=== PATIENT | female | born 1960 | race Caucasian/White ===

== ENCOUNTER 2017-01-01 22:04 | Inpatient (IN) | payer MEDICARE, OTHER ==
[~2017-01-01] VITALS: Ht 157.5 cm; Wt 81.9 kg
[~2017-01-01 22:04] MED LIST: DOESN'T KNOW MEDS
[2017-01-01] MEDS ORDERED: SOD CHLORIDE 0.9% 500 ML IV STA (22:14)
[2017-01-01] MEDS ORDERED: ONDANSETRON 4 MG INJ IV STA (22:14)
[2017-01-01] MEDS ORDERED: morphine 4 MG/ML VIAL IV STA (22:14)
[2017-01-02] MEDS ORDERED: HYDROmorphONE 1 MG/ML SYG IV STA ×3 (01:30→19:58)
[2017-01-02 01:31] LABS: BASOPHILS % 0.1 % (0.0-2.0); EOSINOPHILS # 0.1 10^3/ul (0.0-0.5); EOSINOPHILS % 0.5 % (0.0-7.0); HEMATOCRIT 42.9 % (37.0-47.0); HEMOGLOBIN 14.8 g/dl (12.0-16.0); LYMPHOCYTES # 1.3 10^3/ul (0.8-2.9); LYMPHOCYTES % 8.2 % (15.0-51.0); MEAN CORPUSCULAR HEMOGLOBIN 31.8 pg (29.0-33.0); MEAN CORPUSCULAR HGB CONC 34.4 g/dl (32.0-37.0); MEAN CORPUSCULAR VOLUME 92.7 fl (82.0-101.0); MEAN PLATELET VOLUME 10.9 fl (7.4-10.4); MONOCYTE # 0.9 10^3/ul (0.3-0.9); NEUTROPHIL # 13.2 10^3/ul (1.6-7.5); NEUTROPHILS % 85.2 % (39.0-77.0); PLATELET COUNT 245 10^3/UL (140-440); RED BLOOD COUNT 4.63 10^6/ul (4.20-5.40); RED CELL DISTRIBUTION WIDTH 15.4 % (11.5-14.5); WHITE BLOOD COUNT 15.5 10^3/ul (4.8-10.8)
[2017-01-02 01:32] LABS: ALBUMIN 3.7 g/dl (3.3-4.9)
[2017-01-02 01:33] LABS: POTASSIUM 4.3 mmol/L (3.5-5.1)
[2017-01-02 01:35] LABS: BILIRUBIN,INDIRECT 0.3 mg/dl (0-1.1); BILIRUBIN,TOTAL 0.3 mg/dl (0.2-1.3); CREATININE 0.62 mg/dl (0.44-1.00)
[2017-01-02 01:36] LABS: ALBUMIN/GLOBULIN RATIO 1.12; CALCIUM 9.5 mg/dl (8.4-10.2); CONDITION 1; LH ANALYZER COMMENTS 1; SUSPECT 1; UNCORRECTED WBC 17.3 10^3/ul (4.8-10.8)
[2017-01-02 02:00] VITALS: TEMP 98.7
--- NOTE | 2017-01-02 02:19 | RADRPT ---
PROCEDURE: CT Abdomen and Pelvis without contrast. CLINICAL INDICATION: Epigastric pain. TECHNIQUE: CT scan of the abdomen and pelvis was performed on a multidetector slice CT scanner. N o intravenous contrast material was utilized. Sagittal and coronal reformatted images were obtained from the axial source images. Images were reviewed on a high-resolution PACS workstation. Exam CTDl vol = 21 mGy and DLP = 1310 Gy-cm. One of the following 3 dose reduction techniques were used: Auto mated exposure control; adjustment of the mA and/or kV according to patient size; or use of iterativ e reconstruction technique. COMPARISON: None. FINDINGS: There is no obstruction or ileus. The appendix is visualized and is normal in size. There is no ev idence for acute appendicitis. There is a few scattered colonic diverticuli without evidence for di verticulitis. There is no free fluid. The liver is overall normal in size. No intrahepatic lesions are identified. The gallbladder is di stended with mild wall thickening. There is mild infiltration H surrounding the gallbladder. There are small noncalcified gallstones versus sludge balls.... There is no definite biliary ductal dilat ion. Pancreas is partially fatty replaced and otherwise normal in appearance. Spleen is unremarkab le.. There are no adrenal masses. The aorta is normal caliber. There are atherosclerotic vascular c alcifications. Kidneys are normal in appearance without hydronephrosis, mass or calculus. Ureters are of normal ca liber. Urinary bladder is unremarkable. Is unremarkable. Ovaries are not well visualized. There is metal artifact from a left hip bipolar arthroplasty. Limited evaluation lung bases is unremarkable. IMPRESSION: 1. Distended gallbladder wall thickening pericholecystic infiltration. Probable noncalcified galls tones versus sludge balls. Appearance is consistent with obstruction of the cystic duct with cholecy stitis.. 2. No evidence for biliary ductal dilatation. 3. Is scattered colonic diverticuli without evidence for diverticulitis. 4. Status post left hip bipolar arthroplasty. 5. Atherosclerotic vascular calcifications. RPTAT: [facility] .Ambrose Willingham MD, MD Date Time Electronically viewed and signed by .Ambrose Willingham MD, on 01/02/2017 02:19 .K/
[2017-01-02] MEDS ORDERED: LORAZEPAM 2 MG INJ IV ONE (03:30)
--- NOTE | 2017-01-02 03:39 | ERA ---
ER Documentation Chief Complaint Date/Time DATE: 01/02/17 TIME: 03:38 Chief Complaint AP SINCE THIS AM +N/V HPI This is a 56-year-old female with abdominal pain this morning. She has nausea and vomiting. The vomiting is nonbilious and nonbloody. No fevers no chills. No other current complaints. ROS All systems reviewed and are negative except as per history of present illness. Allergies Allergies: Coded Allergies: acetaminophen (Unverified Allergy, Unknown, 01/01/17) fentanyl (Unverified Allergy, Unknown, 01/01/17) PMhx/Soc Anesthesia Reaction: No Hx Neurological Disorder: No Hx Respiratory Disorders: No Hx Cardiac Disorders: No Hx Psychiatric Problems: No Hx Miscellaneous Medical Probl: Yes (PANIC ATTACKS, HX OF STROKE) Hx Alcohol Use: No Hx Substance Use: No Hx Tobacco Use: Yes (DAILY) Smoking Status: Former smoker Physical Exam Vitals Vital Signs Date Time Temp Pulse Resp B/P Pulse Ox O2 Delivery O2 Flow Rate FiO2 01/02/17 02:00 98.7 78 19 107/85 100 Room Air 01/01/17 22:14 74 19 151/75 97 Physical Exam Const: [] Head: Atraumatic Eyes: Normal Conjunctiva ENT: Normal External Ears, Nose and Mouth. Neck: Full range of motion..~ No meningismus. Resp: Clear to auscultation bilaterally Cardio: Regular rate and rhythm, no murmurs Abd: Soft, non tender, non distended. Normal bowel sounds Skin: No petechiae or rashes Back: No midline or flank tenderness Ext: No cyanosis, or edema Neur: Awake and alert Psych: Normal Mood and Affect Result Diagram: 01/02/17 0035 01/02/17 0035 Results 24 hrs Laboratory Tests Test 01/02/17 00:35 Alanine Aminotransferase (ALT/SGPT) 13IU/L Albumin 3.7g/dl Albumin/Globulin Ratio 1.12 Alkaline Phosphatase 85IU/L Anion Gap 18 Aspartate Amino Transf (AST/SGOT) 14IU/L Basophils # 0.010^3/ul Basophils % 0.1% Blood Morphology Comment Blood Urea Nitrogen 9mg/dl Calcium Level 9.5mg/dl Carbon Dioxide Level 22mmol/L Chloride Level 104mmol/L Creatinine 0.62mg/dl Direct Bilirubin 0.00mg/dl Eosinophils # 0.110^3/ul Eosinophils % 0.5% Globulin 3.30g/dl Glucose Level 121mg/dl Hematocrit 42.9% Hemoglobin 14.8g/dl Indirect Bilirubin 0.3mg/dl Lipase 41U/L Lymphocytes # 1.310^3/ul Lymphocytes % 8.2% Mean Corpuscular Hemoglobin 31.8pg Mean Corpuscular Hemoglobin Concent 34.4g/dl Mean Corpuscular Volume 92.7fl Mean Platelet Volume 10.9fl Monocytes # 0.910^3/ul Monocytes % 6.0% Neutrophils # 13.210^3/ul Neutrophils % 85.2% Nucleated Red Blood Cells # 0.010^3/ul Nucleated Red Blood Cells % 0.0/100WBC Platelet Count 46825^3/UL Potassium Level 4.3mmol/L Red Blood Count 4.6310^6/ul Red Cell Distribution Width 15.4% Sodium Level 140mmol/L Total Bilirubin 0.3mg/dl Total Protein 7.0g/dl White Blood Count 15.510^3/ul Current Medications Medications (Trade) Dose Ordered Sig/Yanick Route PRN Reason Start Time Stop Time Status Last Admin Dose Admin Sodium Chloride (NS) 500 ml @ 500 mls/hr Q1H STAT IV 01/01/17 22:14 01/01/17 23:13 DC 01/01/17 22:24 Morphine Sulfate (morphine) 4 mg ONCE STAT IV 01/01/17 22:14 01/01/17 22:16 DC 01/01/17 22:23 Ondansetron HCl (Zofran Inj) 4 mg ONCE STAT IV 01/01/17 22:14 01/01/17 22:16 DC 01/01/17 22:23 Hydromorphone HCl (Dilaudid) 1 mg ONCE STAT IV 01/02/17 01:30 01/02/17 01:31 DC 01/02/17 01:40 Lorazepam (Ativan) 1 mg ONCE ONCE IV 01/02/17 03:30 01/02/17 03:31 DC 01/02/17 03:30 Hydromorphone HCl (Dilaudid) 1 mg ONCE STAT IV 01/02/17 03:28 01/02/17 03:29 DC Procedures/MDM Medical decision-makin-year-old female with evidence of cholecystitis. At this point patient will be admitted to hospitalist. Dr. Brennan has been consulted for surgery. Departure Diagnosis: Primary Impression: Cholecystitis Condition: Serious ALEX RODGERS RadhaMaribell Jan 02, 2017 03:39
[2017-01-02] MEDS: DEXTROSE 5%-0.45% NACL 1,000 ML IV SCH ×3 (05:00→21:00)
[2017-01-02] MEDS ORDERED: KETOROLAC 30 MG INJ IV PRN (05:00)
[2017-01-02] MEDS: PIPER-TAZO 3.375 GM IV (PMX) 100 ML IVPB SCH ×4 (05:10→23:12)
[2017-01-02 05:19] VITALS: BP 160/73; PULSE 80; RESP 19
[2017-01-02 05:31] VITALS: Ht 157.5 cm; Wt 81.9 kg
[2017-01-02 08:00] VITALS: BP 145/70; RESP 20
--- NOTE | 2017-01-02 08:22 | HP ---
DATE OF ADMISSION: 01/02/2017 TIME SEEN: 5 a.m. CHIEF COMPLAINT: Abdominal pain. HISTORY OF PRESENT ILLNESS: The patient is a 56-year-old female with a history of CVA, panic attack , and left hip replacement who presents to the emergency department with abdominal pain. The patien leopoldo is currently not providing any history to me, and she also has been screaming and swearing at the nurses, saying that everybody is an idiot. The patient has been asking for Dilaudid that she receiv ed in the ER, but currently she is on morphine and Toradol. According to the ER physician, her abdo stacy pain has been going on for 1 day. Her laboratory values show a WBC of 15.5. Otherwise, CBC a nd CMP are within acceptable range. Her liver enzymes and lipase are within normal limits. CT abdo men and pelvis without contrast shows a distended gallbladder wall thickening with pericholecystic i nfiltration. Probable noncalcified gallstones versus sludge. Appearance is consistent with obstruc tion of the cystic duct with cholecystitis. No evidence of bleeding ductal dilatation. Scattered c olonic diverticula without evidence of diverticulitis was also noted. Again, I am not able to gathe r any information at this time. REVIEW OF SYSTEMS: Unable to fully assess. PAST MEDICAL HISTORY: As per HPI. PAST SURGICAL HISTORY: Unknown. SOCIAL HISTORY: Unknown. ALLERGIES: 1. ACETAMINOPHEN. 2. FENTANYL. HOME MEDICATIONS: None listed. PHYSICAL EXAMINATION: VITAL SIGNS: Blood pressure 136/77, heart rate 88, respiratory rate 17, temperature 98.7, oxygen sa turation 99% on 2 L. GENERAL: The patient is currently agitated, at times she is screaming. I am not able to do physical at this time. LABORATORY: Pertinent positives as mentioned in the HPI. IMAGING: CT abdomen and pelvis with results as mentioned in the HPI. IMPRESSION: 1. Acute cholecystitis. 2. Abdominal pain, secondary to above. 3. Leukocytosis, secondary to #1 . 4. History of cerebrovascular accident. 5. History of panic attacks. PLAN: Keep n.p.o. with IV fluids. We will provide pain medication and antiemetics as needed. Curr ently, she is awaiting surgical evaluation. Will consider ordering a HIDA scan, but will leave that decision to the surgeon. Further workup and management per clinical course. Dictated By: ALEX RUIZ/GRIFFIN Conf#: [id number] DID#: [id number]
[2017-01-02] MEDS: FAMOTIDINE 20 MG INJ IV SCH ×2 (09:37→20:53)
--- NOTE | 2017-01-02 12:45 | RADRPT ---
PROCEDURE: HIDA scan CLINICAL INDICATION: 56 -year-old patient with abdominal pain. TECHNIQUE: Following the intravenous injection of into mCi of Tc-99m mebrofenin, multiple images o f the abdomen were obtained up to 60 minutes post injection. COMPARISON: No prior studies. FINDINGS: The liver is promptly visualized, demonstrates homogeneous distribution of radionuclide. There is visualization of the common bile duct and gastrointestinal activity within normal time. The gallbladder is not visualized up to 60 minutes post injection. IMPRESSION: 1. Nonvisualization of the gallbladder up to 60 minutes post injection. 2. No evidence of common bile duct obstruction. Delayed images to follow. A call report was made to Dr. Brennan at 12: 43 p.m. on January 02, 2017. RPTAT: HH .Carine Houston MD, Date Time Electronically viewed and signed by .Craine Houston MD, on 01/02/2017 12:45 .L/
--- NOTE | 2017-01-02 14:34 | CONS ---
DATE OF ADMISSION: 01/02/2017 DATE OF CONSULTATION: 01/02/2017 HISTORY OF PRESENT ILLNESS: Ms. Bello is a 56-year-old female who was admitted to the ER last nigh t with clinical and radiological signs and symptoms of cholecystitis. I went to evaluate the patien t this morning, but she refused to let me in the room and refused surgery. I am now contacting the social workers as well as field nurse case manager. I cannot assess whether she does have cholecystitis based o n my exam as she refuses to let me examine her. However, she does have a positive HIDA and a white count of 15. Therefore, at this point, I had her initially on the schedule for surgery today, but t his is going to have to be postponed due to more evaluation of her mental status. I am unable to obtain past medical history or past surgical history, medications, or allergies, but from the chart she has: PAST MEDICAL HISTORY: CVA, panic attacks. PAST SURGICAL HISTORY: Left hip replacement. ALLERGIES: 1. ACETAMINOPHEN. 2. FENTANYL. HOME MEDICATIONS: None listed. PHYSICAL EXAMINATION: VITAL SIGNS: She is afebrile. Vital signs stable. I am unable to examine her chest, lungs, or abdomen. LABORATORIES: Reveal a white count of 15, hematocrit of 43, and platelets of 245. Sodium 140, pota ssium 4.3, chloride 104, CO2 22, BUN and creatinine 9 and 0.6, glucose 121. A CT of the abdomen and pelvis showed a distended gallbladder with wall thickening, probable gallstones or sludge. This was consistent with obstruction of the cystic duct with cholecystitis. A HIDA scan was ordered which did show nonvisualization of the gallbladder up to 60 minutes, the patient refused to have de layed images. ASSESSMENT AND PLAN: Ms. Bello is a 56-year-old female with likely cholecystitis. I am unable to examine the patient to definitively prove this diagnosis. 1. She will likely need a laparoscopic cholecystectomy, but may respond to medical management. 2. She is refusing surgery at this point and wishes to be transferred to [facility]. We will need to get psychiatry/psychology involved to determine her mental capacity. If she does not impro ve on antibiotics and worsens, it is going to be difficult to, I think, get her into the operating r oom, even if she is declared mentally incompetent. Dictated By: PRAVEEN BLAKE/GRIFFIN Conf#: [id number] DID#: [id number]
[2017-01-02] MEDS ORDERED: ZOLPIDEM 5 MG TAB PO PRN (20:00)
[2017-01-02] MEDS: LORAZEPAM 2 MG INJ IV PRN (20:47)
--- NOTE | 2017-01-02 20:58 | CONS ---
DATE OF ADMISSION: 01/02/2017 DATE OF CONSULTATION: 01/02/2017 SURGICAL SECOND OPINION REASON FOR CONSULTATION: Acute cholecystitis. REQUESTING PHYSICIAN: Dr. Zepeda HISTORY OF PRESENT ILLNESS: The patient is a 56-year-old female with a history of CVA, panic attack, and left hip replacement who was admitted with abdominal pain. Apparently, the pain has been going on for 1 day. On arrival to the emergency room, she was found to have a white blood cell count of 15.5. A CT scan showed gallbladder wall thickening with inflammatory changes concerning for acute cholecystitis. The patient was initially admitted and surgical consultation was called with the primary surgeon on the case. However, he was unable to obtain an adequate history and physical exam given the patient's agitation and failure to cooperate. He did, however, order a HIDA scan, which showed nonvisualization of the gallbladder after 60 minutes. His recommendations were for laparoscopic cholecystectomy with the alternative of medical management if the patient refuses. Patient has requested a second opinion. Upon my arrival to the patient's room, as soon as I entered, she yelled for me to get out and go away. I was not able to obtain much of an appropriate to history from the patient, as she kept rambling that she wanted her Dilaudid. She refused to also allow me to perform a physical exam on her. Apparently, the patient also refused a tele psych examination. She has been refusing IV antibiotics and IV fluids as well. PAST MEDICAL HISTORY: As mentioned in the HPI. PAST SURGICAL HISTORY: As mentioned in HPI. MEDICATIONS: Please refer to medication reconciliation. ALLERGIES: ACETAMINOPHEN AND FENTANYL. REVIEW OF SYSTEMS: Unable to obtain, as the patient does not cooperate and keeps yelling for me to get out. PHYSICAL EXAMINATION: VITAL SIGNS: Temperature is 98.6, pulse is 87, respirations 20, blood pressure 145/70, O2 sats 96% on room air. GENERAL APPEARANCE: She is an obese female who is agitated, yelling, and uncooperative. The patient did not permit me to perform a physical exam; therefore, I was unable to examine her abdomen to assess for tenderness. LABORATORY WORK: White blood cell count 15.5, hemoglobin 14.8, platelet count is 245. Sodium 140, potassium 4.3, chloride 104, bicarbonate 22, BUN 9, creatinine 0.62, glucose 121. Albumin 3.7, total bilirubin 0.3, alkaline phosphatase 85, AST 14, ALT 13. IMAGING STUDIES: CT scan of the abdomen and pelvis shows a distended gallbladder with wall thickening and pericholecystic infiltration. There are probable noncalcified gallstones versus sludge balls. There are scattered colonic diverticula without evidence for diverticulitis. Status post left hip arthroplasty and atherosclerotic vascular calcifications. HIDA scan shows nonvisualization of the gallbladder up to 60 minutes post-injection. No evidence of common bile duct obstruction. RECOMMENDATIONS: This is a 56-year-old female with findings concerning for acute cholecystitis based on abdominal CT scan and HIDA scan. The patient is agitated, belligerent, uncooperative, and verbally abusive to both myself, the primary care team, and the staff. The patient's nurse was in the room with me to witness all of this. I tried to explain to her that I believe the patient has acute cholecystitis and would benefit from surgical intervention. She asked me how I would know that and told me that surgery is too drastic and that she does not want it. I do agree with the primary surgeon' s assessment and plan, recommending cholecystectomy. However, if the patient continues to refuse, the other alternative would be to treat medically with bowel rest, pain control, and IV antibiotics. The patient, however, is also refusing IV antibiotics. I attempted to discuss the risks of refusing all these treatments, however, she refused to hear it. I have discussed the case with the nurse who was in the room with me as well as with primary care team and the primary surgeon on the case. I agree with their assessment and plans thus far and will leave further decision making and management to them. Dictated By: AGBE BRUNSON/GRIFFIN Conf#: [id number] DID#: [id number] CC: ALEX CHANEY MD; CÉSAR ZEPEDA;*EndCC* MTDJordan
[2017-01-02 21:00] VITALS: BP 157/79; PULSE 99; RESP 18
[2017-01-02] MEDS: NYSTATIN 30 GM POWDER BTL TOP SCH (23:00)
--- NOTE | 2017-01-03 00:17 | PN ---
DATE: 01/02/2017 ADDENDUM: TO MY CONSULTATION NOTE OF TODAY. Patient is obviously refusing surgery. We attempted to obtain a tele psych clearance and obtain her competency but the patient refused. The patient wished to have a second surgical opinion and jyoti joyce with that second surgical opinion. At this point, it was very difficult to manage thi s patient. She potentially could manage this medically without surgery, but she is refusing IV anti biotics. I think it is very important to establish her incompetency as she is incompetent then we c an treat her medically or surgically against her wishes. I am not sure if there is a medical ethics committee at this hospital, but if there is then the case should be presented. I also feel that we should withdraw her pain medication as this is only enabling the patient's situation. By removing her pain medication the patient may realize that she needs surgery for her cholecystitis. Further r ecommendations to follow. Dictated By: PRAVEEN BLAKE/GRIFFIN Conf#: [id number] DID#: [id number]
[2017-01-03] MEDS: DEXTROSE 5%-0.45% NACL 1,000 ML IV SCH ×3 (00:21→21:00)
[2017-01-03] MEDS: morphine 4 MG/ML VIAL IV PRN ×3 (00:54→10:25)
[2017-01-03] MEDS: LORAZEPAM 2 MG INJ IV PRN ×4 (00:54→14:25)
[2017-01-03] MEDS ORDERED: morphine 2 MG INJ IV ONE (01:00)
[2017-01-03] MEDS: HYDROmorphONE 1 MG/ML SYG IV PRN ×4 (02:41→16:05)
[2017-01-03] MEDS: NYSTATIN 30 GM POWDER BTL TOP SCH ×3 (03:29→20:32)
[2017-01-03] MEDS: PIPER-TAZO 3.375 GM IV (PMX) 100 ML IVPB SCH ×4 (05:01→23:20)
[2017-01-03 05:51] LABS: BASOPHILS % 0.5 % (0.0-2.0); EOSINOPHILS # 0.1 10^3/ul (0.0-0.5); EOSINOPHILS % 1.7 % (0.0-7.0); HEMATOCRIT 35.7 % (37.0-47.0); HEMOGLOBIN 12.3 g/dl (12.0-16.0); LYMPHOCYTES # 1.1 10^3/ul (0.8-2.9); MEAN CORPUSCULAR HEMOGLOBIN 32.1 pg (29.0-33.0); MEAN CORPUSCULAR HGB CONC 34.5 g/dl (32.0-37.0); MEAN PLATELET VOLUME 11.1 fl (7.4-10.4); MONOCYTE # 0.6 10^3/ul (0.3-0.9); MONOCYTES % 7.2 % (0.0-11.0); NEUTROPHILS % 78.6 % (39.0-77.0); PLATELET COUNT 215 10^3/UL (140-440); RED BLOOD COUNT 3.84 10^6/ul (4.20-5.40); RED CELL DISTRIBUTION WIDTH 14.9 % (11.5-14.5); UNCORRECTED WBC 8.9 10^3/ul (4.8-10.8); WHITE BLOOD COUNT 8.9 10^3/ul (4.8-10.8)
[2017-01-03 06:12] LABS: CONDITION 1; LH ANALYZER COMMENTS 1
[2017-01-03 06:13] LABS: CREATININE 0.72 mg/dl (0.44-1.00)
[2017-01-03 06:14] LABS: CALCIUM 9.2 mg/dl (8.4-10.2)
[2017-01-03] MEDS: FAMOTIDINE 20 MG INJ IV SCH ×2 (09:06→21:00)
--- NOTE | 2017-01-03 11:28 | PN ---
DATE: 01/03/2017 SUBJECTIVE: The patient still with abdominal pain, requested a second opinion from different surger y team yesterday, still requesting pain medication. OBJECTIVE VITAL SIGNS: Stable, except blood pressure 157/79. GENERAL: The patient lying in bed, still somewhat difficult to speak to, but alert. Cranky. HEENT: Pupils equal, round, react to light. Extraocular muscles intact. NECK: Supple, no thyromegaly. LUNGS: Clear to auscultation bilaterally. CARDIOVASCULAR: S1, S2 heard. No rubs or gallops. ABDOMEN: Tenderness to palpation in the right upper quadrant area with some guarding. Slightly dec reased bowel sounds. MUSCULOSKELETAL: No lower extremity edema bilaterally. NEUROLOGIC: No focal deficits. LABORATORY DATA: CBC is completely normal. BMP is normal. ASSESSMENT AND PLAN: This is a difficult 56-year-old female with history of CVA, panic attack, left hip replacement, who comes in with abdominal pain and signs of acute cholecystitis. 1. Abdominal pain secondary to acute cholecystitis. Again, the patient has been refusing to partic ipate with telepsychiatry and wants second opinion from second surgeon. She is now willing today to speak again to the second surgeon to consider possible surgical intervention. She was explained in details the risks of treating only with antibiotics versus surgical intervention which is the prefe rred option based on her exam and her laboratory results. The patient is still asking for frequent pain medications. Again, she is agreeing to reconsider the surgical option, but wants to speak to t he second surgeon again, so we are going to recontact him to see if they can talk to her. In the az antime, continue pain control medications and antibiotics and n.p.o. status for now. Monitor vital signs very carefully. We are also going to get palliative care team involved. We need to determine if the patient in fact can make her own decisions given her volatile affect and the fact that she i s changing her mind very frequently, but again we explained the importance in detail about the risks of not proceeding with surgery at this point including spread of infection, sepsis, and even . 2. continue to monitor for now, no present issues. 3. History of prior left hip replacement. Again, PT consult. No present issues regarding that. 4. Leukocytosis, improved, secondary to #1. Continue to monitor for now. 5. History of panic attacks. There is Ativan written for p.r.n. 6. Gastrointestinal prophylaxis, H2 bill. 7. Deep venous thrombosis prophylaxis, sequential compression devices. Dictated By: CÉSAR CHRISTENSEN Conf#: [id number] DID#: [id number]
--- NOTE | 2017-01-03 13:31 | PN ---
Date/Time of Note Date/Time of Note DATE: 01/03/17 TIME: 13:28 Assessment/Plan Lines/Catheters IV Catheter Type (from [facility]): Peripheral IV Sanchez in Place (from [facility]): No Assessment/Plan Assessment/Plan 56-year-old female with clinical signs and symptoms of acute cholecystitis * Confirmed via CT scan and HIDA scan * Leukocytosis improved * Patient now allowing IV antibiotics. Continue * Patient seems to be more agreeable to surgical intervention at this time. * We'll try and obtain medical clearance for possible surgery if patient definitively agrees. Subjective 24 Hr Interval Summary Was asked to see patient again as she wanted to talk to me about surgery. Patient is more calm and cooperative today. Still complains of right upper quadrant abdominal pain. Afebrile. Exam/Review of Systems Vital Signs Vitals Vital Signs Date Time Temp Pulse Resp B/P Pulse Ox O2 Delivery O2 Flow Rate FiO2 01/03/17 08:00 Nasal Cannula 2.0 01/02/17 21:00 98.4 99 18 157/79 97 Intake and Output 01/02/17 01/02/17 01/03/17 15:00 23:00 07:00 Intake Total 900 ml 350 ml Output Total 550 ml Balance 900 ml -200 ml Exam Free Text/Dictation GENERAL: Awake, alert, oriented 3. No acute distress. SKIN: No jaundice. ABDOMEN: Soft, obese, right upper quadrant tenderness to palpation. Results Result Diagram: 01/03/17 0425 01/03/17 0425 GABE MONTANO MD Jan 03, 2017 13:31
[2017-01-03] MEDS ORDERED: HALOPERIDOL 5 MG INJ IM PRN (14:30)
[2017-01-03] MEDS: morphine 2 MG INJ IV PRN (17:04)
[2017-01-04] MEDS: PIPER-TAZO 3.375 GM IV (PMX) 100 ML IVPB SCH ×3 (05:25→18:00)
[2017-01-04] MEDS: HYDROmorphONE 1 MG/ML SYG IV PRN ×2 (07:31→11:00)
[2017-01-04] MEDS: DEXTROSE 5%-0.45% NACL 1,000 ML IV SCH ×2 (07:31→17:00)
[2017-01-04] MEDS: LORAZEPAM 2 MG INJ IV PRN ×2 (07:46→11:48)
[2017-01-04] MEDS: FAMOTIDINE 20 MG INJ IV SCH ×2 (09:00→21:00)
[2017-01-04] MEDS: NYSTATIN 30 GM POWDER BTL TOP SCH ×2 (09:00→21:00)
--- NOTE | 2017-01-04 09:24 | PN ---
Date/Time of Note Date/Time of Note DATE: 01/04/17 TIME: 09:19 Assessment/Plan Lines/Catheters IV Catheter Type (from [facility]): Peripheral IV Sanchez in Place (from [facility]): No Assessment/Plan Assessment/Plan 56-year-old female with clinical signs and symptoms of acute cholecystitis * Confirmed via CT scan and HIDA scan * Leukocytosis improved * Patient now allowing IV antibiotics. Continue * Patient seems to be more agreeable to surgical intervention, however remains emotionally labile when advised to allow necessary pre-operative workup and clearance. * Continue medical management. Await clearance if she allows. Subjective 24 Hr Interval Summary Continues to complain of pain. Continues to refuse blood draws, EKG, and vitals. Afebrile on last measurement. Exam/Review of Systems Vital Signs Vitals Vital Signs Date Time Temp Pulse Resp B/P Pulse Ox O2 Delivery O2 Flow Rate FiO2 01/03/17 08:00 Nasal Cannula 2.0 01/02/17 21:00 98.4 99 18 157/79 97 Intake and Output 01/03/17 01/03/17 01/04/17 15:00 23:00 07:00 Intake Total 250 ml 1000 ml Balance 250 ml 1000 ml Exam Free Text/Dictation GENERAL: Awake, alert, oriented 3. No acute distress. SKIN: No jaundice. ABDOMEN: Soft, obese, right upper quadrant tenderness to palpation. Results Result Diagram: 01/03/17 0425 01/03/17 0425 GABE MONTANO MD Jan 04, 2017 09:24
--- NOTE | 2017-01-04 11:33 | PN ---
Date/Time of Note Date/Time of Note DATE: 01/04/17 TIME: 11:28 Assessment/Plan VTE Prophylaxis VTE Prophylaxis Intervention: SCD's Lines/Catheters IV Catheter Type (from [facility]): Peripheral IV Urinary Cath still in place: No Assessment/Plan Chief Complaint/Hosp Course ASSESSMENT AND PLAN: Difficult 56-year-old female with history of CVA, panic attack, left hip replacement, who comes in with abdominal pain and signs of acute cholecystitis. 1. Abdominal pain secondary to acute cholecystitis - on IV abx, still refusing surgery. Also refusing to participate with telepsychiatry. She was explained in details the risks of treating only with antibiotics versus surgical intervention which is the preferred option based on her exam and her laboratory results. The patient is still asking for frequent pain medications. We have explained the importance in detail about the risks of not proceeding with surgery at this point including spread of infection, sepsis, and even . She briefly reconsidered the surgical option yesterday, but again changed her mind yesterday. - for now, continue pain control medications and antibiotics and n.p.o. status for now. - Monitor vital signs very carefully. - f/u palliative care team rec's - per discussion with them pt may have component of schizophrenia - may benefit from antipsychotics. We also need to determine if the patient in fact can make her own decisions given her volatile affect and the fact that she is changing her mind very frequently. 2. Hx of prior CVA - continue to monitor for now, no present issues. 3. History of prior left hip replacement. Again, f/u PT consult. No present issues. 4. Leukocytosis, improved, secondary to #1. Continue to monitor for now. 5. History of panic attacks. There is Ativan written for p.r.n. Haldol prn IM. 6. Gastrointestinal prophylaxis, H2 bill. 7. Deep venous thrombosis prophylaxis, sequential compression devices. Problems: Subjective 24 Hr Interval Summary Free Text/Dictation Pt still refusing surgery. Exam/Review of Systems Vital Signs Vitals Vital Signs Date Time Temp Pulse Resp B/P Pulse Ox O2 Delivery O2 Flow Rate FiO2 01/03/17 08:00 Nasal Cannula 2.0 01/02/17 21:00 98.4 99 18 157/79 97 Intake and Output 01/03/17 01/03/17 01/04/17 15:00 23:00 07:00 Intake Total 250 ml 1000 ml Balance 250 ml 1000 ml Exam GENERAL: The patient lying in bed, more alert. Less cranky. HEENT: Pupils equal, round, react to light. Extraocular muscles intact. NECK: Supple, no thyromegaly. LUNGS: Clear to auscultation bilaterally. CARDIOVASCULAR: S1, S2 heard. No rubs or gallops. ABDOMEN: Tenderness to palpation in the right upper quadrant area with some guarding. Slightly decreased bowel sounds. MUSCULOSKELETAL: No lower extremity edema bilaterally. NEUROLOGIC: No focal deficits. Results Result Diagram: 01/03/175 01/03/175 Medications Medications Current Medications Dextrose/Sodium Chloride (D5-1/2ns) 1,000 ml @ 100 mls/hr Q10H IV Last administered on 01/04/17 07:31; Admin Dose 100 MLS/HR; Start 01/02/17 at 05:00 Ketorolac Tromethamine 30 mg 30 mg Q6H PRN IV PAIN; Start 01/02/17 at 05:00; Stop 01/05/17 at 04:59 Piperacillin Sod/ Tazobactam Sod (Zosyn 3.375gm/ 100 ml (Pmx)) 100 ml @ 200 mls /hr Q6 IVPB Last administered on 01/04/17 05:25; Admin Dose 200 MLS/HR; Start 01/02/17 at 06:00 Ondansetron HCl (Zofran Inj) 4 mg Q6H PRN IV NAUSEA AND/OR VOMITING; Start at 05:00 Famotidine (Pepcid Iv) 20 mg BID IV Last administered on 01/03/17 09:06; Admin Dose 20 MG; Start 01/02/17 at 09:00 Lorazepam (Ativan) 1 mg Q4H PRN IV ANXIETY Last administered on 01/04/17 07:46 ; Admin Dose 1 MG; Start 01/02/17 at 20:00 Nystatin (Nystatin Powder) 1 applic BID TOP Last administered on 01/03/17 08: 20; Admin Dose 1 APPLIC; Start 01/02/17 at 23:00 Morphine Sulfate (morphine) 1 mg Q4H PRN IV PAIN LEVEL 4-7 Last administered on 01/03/17 17:04; Admin Dose 1 MG; Start 01/03/17 at 13:00 Haloperidol (Haldol) 1 mg Q4H PRN IM AGITATION/ANXIETY; Start 01/03/17 at 14:30 Hydromorphone HCl (Dilaudid) 0.25 mg Q6H PRN IV PAIN; Start 01/04/17 at 16:30 CÉSAR ZEPEDA Jan 04, 2017 11:33
[2017-01-04] MEDS: morphine 2 MG INJ IV PRN (12:07)
--- NOTE | 2017-01-04 13:12 | CONS ---
DATE OF ADMISSION: 01/02/2017 DATE OF CONSULTATION: 01/04/2017 TYPE OF CONSULTATION: Pain management REFERRING PHYSICIAN: Brian Love MD HISTORY OF PRESENT ILLNESS: By history, this is a 56-year-old female with past medical history of C VA, presents with abdominal pain. Recently seen at [facility] was sent home at that time , with just given IV opioids at that time. However, her pain persisted. She presented to the emerg ency room at [facility] with increasing abdominal discomfort, increasing 1 day royce or to presentation. CT scan done in the emergency room showed a distended gallbladder, thickening w ith pericholecystic infiltration by radiologist, consistent with obstruction of the cystic duct with cholecystitis. The patient continues to complain of abdominal discomfort which is continuous in a generalized abdomen without radiation. There is no history of substance abuse in the past. She duglas cribes the pain as 10/10 and without radiation. She does have nausea but without vomiting associate d with this. MEDICATIONS: Please refer to reconciliation sheet. ALLERGIES: 1. FENTANYL PATCH. 2. ACETAMINOPHEN. 3. KETOROLAC. MAJOR MEDICAL PROBLEMS IN THE PAST: History of left hip fracture approximately over 1 year ago. Hi story of depression on SSRIs at this time. SOCIAL HISTORY: Noncontributory. FAMILY HISTORY: Noncontributory. REVIEW OF SYSTEMS: As per history of present illness, 12-point review of systems otherwise unremark able. PHYSICAL EXAMINATION: GENERAL: Shows a somewhat uncomfortable-appearing female. VITAL SIGNS: Blood pressure 151/79, pulse 99 and regular, respirations of 18, temperature of 98.4 d egrees, 97% saturation on 3 liters. HEENT: She is normocephalic and atraumatic. Anicteric, acyanotic. CHEST: Shows bilateral clear breath sounds throughout both lung pham. COR: S1, S2, without S3, S4, murmur, gallop, rub. Normal rate, normal rhythm. ABDOMEN: Distended. No gross evidence of rebound or peritoneal signs. LABORATORY TESTS: There are no new laboratory tests today. ASSESSMENT AND PLAN: This is a 56-year-old female with acute cholecystitis who is refusing surgery. I believe the reason for that is she has some underlying psychiatric history, the best I could asc ertain, bipolar as she is currently on SSRI and she has refused Seroquel in the past. She has been taking a combination of Zoloft and morphine, fairly high dose of morphine 90 mg a day, Xanax and an unknown sleeping medication. I believe there is a reasonably good chance that she is withdrawing fr om Zoloft, morphine and Xanax in addition to being somewhat cantankerous also and is probably bipola r from my nonpsychiatric standpoint. I think the best thing to do is to cover her right now for pot ential withdrawal syndrome. I will start her off on a very low of continuous Dilaudid, which I have negotiated with her on only at 1 mg/hour with p.r.n. doses for breakthrough pain. I will start her off on an atypical antipsychotic, Geodon crushed in water 10 mg b.i.d. to start immediately and for potential withdrawal from benzodiazepines, we will start her off on Xanax as a scheduled dose also. Currently, she has agreed to surgery, but I will come back later on this afternoon. Hopefully, ej chester does not refuse medications and refused surgical intervention. Dictated By: ROBERTO ROBERTO MD, LP/GRIFFIN Conf#: [id number] DID#: [id number]
[2017-01-04] MEDS: HYDROmorphONE 0.2 MG/ML PCA IV SCH (15:21)
[2017-01-04] MEDS: LORAZEPAM 2 MG INJ IV SCH ×2 (15:22→18:00)
[2017-01-04] MEDS: ZIPRASIDONE 20 MG CAP PO SCH ×2 (16:07→21:00)
[2017-01-04] MEDS ORDERED: HYDROmorphONE 1 MG/ML SYG IV PRN (16:30)
[2017-01-04] MEDS ORDERED: HYDROmorphONE 2 MG TAB PO PRN (19:30)
[2017-01-04] MEDS: LORAZEPAM 1 MG TAB PO PRN (21:35)
[2017-01-05] MEDS: DEXTROSE 5%-0.45% NACL 1,000 ML IV SCH ×3 (03:00→23:08)
[2017-01-05] MEDS: PIPER-TAZO 3.375 GM IV (PMX) 100 ML IVPB SCH ×5 (05:28→23:32)
[2017-01-05] MEDS: LORAZEPAM 2 MG INJ IV SCH ×5 (05:28→23:32)
[2017-01-05] MEDS: LORAZEPAM 1 MG TAB PO PRN (07:55)
[2017-01-05] MEDS: FAMOTIDINE 20 MG INJ IV SCH ×2 (08:04→20:40)
[2017-01-05] MEDS: ZIPRASIDONE 20 MG CAP PO SCH ×2 (08:04→20:40)
[2017-01-05] MEDS: NYSTATIN 30 GM POWDER BTL TOP SCH ×2 (08:05→21:00)
--- NOTE | 2017-01-05 11:03 | PN ---
Date/Time of Note Date/Time of Note DATE: 01/05/17 TIME: 10:57 Assessment/Plan VTE Prophylaxis VTE Prophylaxis Intervention: SCD's Lines/Catheters IV Catheter Type (from Nrsg): Peripheral IV Urinary Cath still in place: No Assessment/Plan Chief Complaint/Hosp Course ASSESSMENT AND PLAN: Difficult 56-year-old female with history of CVA, panic attack, left hip replacement, who comes in with abdominal pain and signs of acute cholecystitis. 1. Abdominal pain - secondary to acute cholecystitis - on IV abx, still refusing surgery. Also refusing to participate with telepsychiatry. She was explained in details the risks of treating only with antibiotics versus surgical intervention which is the preferred option based on her exam and her laboratory results. The patient is still asking for frequent pain medications. We have explained the importance in detail about the risks of not proceeding with surgery at this point including spread of infection, sepsis, and even . As of now she agrees to the surgical option. Per pain mngt team, pt may be withdrawing from Zoloft, morphine and Xanax (she apparently was taking high doses of these meds as outpt). She may have component of bipolar ds as well. - for now, continue pain control medications, Geodon, and antibiotics and n.p.o. status for now. - Monitor vital signs very carefully. - f/u palliative care team rec's - awaiting EKG and troponin, if neg results then pt would be medically cleared for surgery. 2. Hx of prior CVA - continue to monitor for now, no present issues. 3. History of prior left hip replacement. Again, f/u PT consult. No present issues. 4. Leukocytosis, improved, secondary to #1. Continue to monitor for now. 5. History of panic attacks. There is Ativan written for p.r.n. Haldol prn IM. 6. Gastrointestinal prophylaxis, H2 bill. 7. Deep venous thrombosis prophylaxis, sequential compression devices. Problems: Subjective 24 Hr Interval Summary Free Text/Dictation Pt seen by pain mngt team yesterday, getting PICC now. Only taking PO pain meds presently (refusing all the others, per nursing). Exam/Review of Systems Vital Signs Vitals Vital Signs Date Time Temp Pulse Resp B/P Pulse Ox O2 Delivery O2 Flow Rate FiO2 01/04/17 22:30 Nasal Cannula 2.0 2/14/17 21:00 98.4 99 18 157/79 97 Intake and Output 01/04/17 01/04/17 01/05/17 15:00 23:00 07:00 Intake Total 50 ml Balance 50 ml Exam PE: - unable to perform today b/c pt off floor at procedure Results Result Diagram: 01/03/17 0425 01/03/17 0425 Medications Medications Current Medications Dextrose/Sodium Chloride 1,000 ml @ 100 mls/hr Q10H IV Last administered on 07:31; Admin Dose 100 MLS/HR; Start 01/02/17 at 05:00 Piperacillin Sod/ Tazobactam Sod (Zosyn 3.375gm/ 100 ml (Pmx)) 100 ml @ 200 mls /hr Q6 IVPB Last administered on 01/04/17 11:48; Admin Dose 200 MLS/HR; Start 01/02/17 at 06:00 Ondansetron HCl (Zofran Inj) 4 mg Q6H PRN IV NAUSEA AND/OR VOMITING; Start at 05:00 Famotidine (Pepcid Iv) 20 mg BID IV Last administered on 01/03/17 09:06; Admin Dose 20 MG; Start 01/02/17 at 09:00 Nystatin (Nystatin Powder) 1 applic BID TOP Last administered on 01/03/17 08: 20; Admin Dose 1 APPLIC; Start 01/02/17 at 23:00 Hydromorphone HCl (Dilaudid) 1 mg Q4 PRN IV PAIN; Start 01/04/17 at 13:00 Lorazepam (Ativan) 0.5 mg Q6 IV Last administered on 01/04/17 15:22; Admin Dose 0.5 MG; Start 01/04/17 at 14:00 Ziprasidone (Geodon) 20 mg BID PO Last administered on 01/04/17 16:07; Admin Dose 20 MG; Start 01/04/17 at 14:00 Hydromorphone HCl (Dilaudid LIQUID HYDROGEN PLANT OPERATOR) 0.5 MG/HR CONTINUOUS RATE ... Q4PCA IV Last administered on 01/04/17 15:21; Admin Dose 6 MG; Start 01/04/17 at 12:30 Hydromorphone HCl (Dilaudid) 2 mg Q4H PRN PO PAIN Last administered on 19:36; Admin Dose 2 MG; Start 01/04/17 at 19:30 Lorazepam (Ativan) 1 mg Q6H PRN PO ANXIETY Last administered on 01/05/17 07:55 ; Admin Dose 1 MG; Start 01/04/17 at 20:30 CÉSAR ZEPEDA Jan 05, 2017 11:03
[2017-01-05] MEDS: HYDROmorphONE 1 MG/ML SYG IV PRN ×2 (11:29→18:06)
--- NOTE | 2017-01-05 12:31 | RADRPT ---
PROCEDURE: XR Chest. CLINICAL INDICATION: Respiratory distress. Right PICC line placement. TECHNIQUE: AP view of the chest was performed. COMPARISON: December 04, 2011 FINDINGS: There is a right PICC line with the tip at the RA/SVC junction. This line is in good positioning an d ready for use. The cardiomediastinal silhouette is within normal limits. The lungs are clear. No signs of pleural f luid or pneumothorax are seen. The osseous structures and soft tissues are unremarkable. IMPRESSION: No evidence for active cardiopulmonary disease. Right PICC line in good positioning and ready for us e. RPTAT: QQ .Alanna Fung MD, MD Date Time Electronically viewed and signed by .Alanna Fung MD, on 01/05/2017 12:30 .F/
--- NOTE | 2017-01-05 12:50 | RADRPT ---
PROCEDURE: US guidance for PICC line CLINICAL INDICATION: PICC line placement TECHNIQUE: Multiple real-time images were acquired of the patient's arm utilizing a high resolutio n transducer. This was performed by the PICC line nurse for venous access. COMPARISON: None FINDINGS: Ultrasound guidance for PICC line placement. IMPRESSION: Ultrasound guidance for PICC line placement. RPTAT: AA .Madhu Covington MD, MD Date Time Electronically viewed and signed by .Madhu Covington MD, on 01/05/2017 12:50 .S/
[2017-01-05 13:24] LABS: POTASSIUM 3.7 mmol/L (3.5-5.1)
[2017-01-05 13:26] LABS: CREATININE 0.66 mg/dl (0.44-1.00)
[2017-01-05 13:27] LABS: CALCIUM 9.3 mg/dl (8.4-10.2)
[2017-01-05] MEDS ORDERED: SOD CHLORIDE 0.9% 100 ML ONE (13:37)
[2017-01-05 14:21] LABS: BASOPHIL # 0.1 10^3/ul (0.0-0.1); BASOPHILS % 1.3 % (0.0-2.0); EOSINOPHILS # 0.1 10^3/ul (0.0-0.5); EOSINOPHILS % 1.5 % (0.0-7.0); HEMATOCRIT 33.5 % (37.0-47.0); HEMOGLOBIN 11.6 g/dl (12.0-16.0); LYMPHOCYTES # 0.8 10^3/ul (0.8-2.9); LYMPHOCYTES % 14.5 % (15.0-51.0); MEAN CORPUSCULAR HEMOGLOBIN 31.8 pg (29.0-33.0); MEAN CORPUSCULAR HGB CONC 34.7 g/dl (32.0-37.0); MEAN CORPUSCULAR VOLUME 91.8 fl (82.0-101.0); MEAN PLATELET VOLUME 10.6 fl (7.4-10.4); MONOCYTE # 0.3 10^3/ul (0.3-0.9); MONOCYTES % 4.4 % (0.0-11.0); NEUTROPHIL # 4.5 10^3/ul (1.6-7.5); NEUTROPHILS % 78.3 % (39.0-77.0); PLATELET COUNT 249 10^3/UL (140-440); RED BLOOD COUNT 3.65 10^6/ul (4.20-5.40); RED CELL DISTRIBUTION WIDTH 14.2 % (11.5-14.5); UNCORRECTED WBC 5.7 10^3/ul (4.8-10.8); WHITE BLOOD COUNT 5.7 10^3/ul (4.8-10.8)
[2017-01-05 14:25] LABS: CONDITION 1
--- NOTE | 2017-01-05 16:14 | PN ---
Date/Time of Note Date/Time of Note DATE: 01/05/17 TIME: 16:13 Assessment/Plan Lines/Catheters IV Catheter Type (from [facility]): PICC Line Sanchez in Place (from [facility]): No Assessment/Plan Assessment/Plan 56-year-old female with clinical signs and symptoms of acute cholecystitis * Confirmed via CT scan and HIDA scan * Leukocytosis improved * Patient now allowing IV antibiotics. Continue * Patient seems to be more agreeable to surgical intervention, however remains emotionally labile when advised to allow necessary pre-operative workup and clearance. * Continue medical management to which she seems to be responding. Subjective 24 Hr Interval Summary Still complains of pain. Afebrile. Exam/Review of Systems Vital Signs Vitals Vital Signs Date Time Temp Pulse Resp B/P Pulse Ox O2 Delivery O2 Flow Rate FiO2 01/04/17 22:30 Nasal Cannula 2.0 01/02/17 21:00 98.4 99 18 157/79 97 Intake and Output 01/04/17 01/04/17 01/05/17 15:00 23:00 07:00 Intake Total 50 ml Balance 50 ml Exam Free Text/Dictation GENERAL: Awake, alert, oriented 3. No acute distress. SKIN: No jaundice. ABDOMEN: Soft, obese, still with right upper quadrant tenderness to palpation, but slightly improved. Results Result Diagram: 01/05/17 1400 01/05/17 1300 GABE MONTANO MD Jan 05, 2017 16:14
[2017-01-05] MEDS: ONDANSETRON 4 MG INJ IV PRN (21:26)
[2017-01-06] MEDS: HYDROmorphONE 1 MG/ML SYG IV PRN ×6 (01:16→21:00)
[2017-01-06] MEDS ORDERED: VITAMIN A & D 5 GM OINT PACKET TOP ONE ×2 (03:28→13:09)
[2017-01-06 05:09] LABS: BASOPHIL # 0.1 10^3/ul (0.0-0.1); BASOPHILS % 1.3 % (0.0-2.0); EOSINOPHILS # 0.2 10^3/ul (0.0-0.5); EOSINOPHILS % 4.5 % (0.0-7.0); HEMATOCRIT 31.3 % (37.0-47.0); HEMOGLOBIN 10.9 g/dl (12.0-16.0); LYMPHOCYTES % 23.4 % (15.0-51.0); MEAN CORPUSCULAR HEMOGLOBIN 31.9 pg (29.0-33.0); MEAN CORPUSCULAR HGB CONC 34.9 g/dl (32.0-37.0); MEAN CORPUSCULAR VOLUME 91.4 fl (82.0-101.0); MEAN PLATELET VOLUME 10.6 fl (7.4-10.4); MONOCYTE # 0.3 10^3/ul (0.3-0.9); MONOCYTES % 7.8 % (0.0-11.0); NEUTROPHIL # 2.8 10^3/ul (1.6-7.5); PLATELET COUNT 211 10^3/UL (140-440); RED BLOOD COUNT 3.42 10^6/ul (4.20-5.40); RED CELL DISTRIBUTION WIDTH 14.4 % (11.5-14.5); UNCORRECTED WBC 4.4 10^3/ul (4.8-10.8); WHITE BLOOD COUNT 4.4 10^3/ul (4.8-10.8)
[2017-01-06] MEDS: PIPER-TAZO 3.375 GM IV (PMX) 100 ML IVPB SCH ×4 (05:20→23:20)
[2017-01-06 05:29] LABS: POTASSIUM 3.5 mmol/L (3.5-5.1)
[2017-01-06] MEDS: HYDROmorphONE 0.2 MG/ML PCA IV SCH ×2 (05:30→16:58)
[2017-01-06 05:32] LABS: CREATININE 0.65 mg/dl (0.44-1.00)
[2017-01-06 05:36] LABS: CONDITION 1
[2017-01-06] MEDS: LORAZEPAM 2 MG INJ IV SCH ×4 (06:53→23:50)
[2017-01-06] MEDS: ONDANSETRON 4 MG INJ IV PRN ×2 (07:53→16:02)
[2017-01-06] MEDS: NYSTATIN 30 GM POWDER BTL TOP SCH ×2 (08:16→21:04)
[2017-01-06] MEDS: DEXTROSE 5%-0.45% NACL 1,000 ML IV SCH ×3 (08:19→23:18)
[2017-01-06] MEDS: FAMOTIDINE 20 MG INJ IV SCH ×3 (08:19→22:18)
[2017-01-06] MEDS: ZIPRASIDONE 20 MG CAP PO SCH ×2 (08:20→21:00)
--- NOTE | 2017-01-06 11:44 | PN ---
Date/Time of Note Date/Time of Note DATE: 01/06/17 TIME: 11:41 Assessment/Plan VTE Prophylaxis VTE Prophylaxis Intervention: SCD's Lines/Catheters IV Catheter Type (from Nrsg): PICC Line Central line still needed: Yes Urinary Cath still in place: No Assessment/Plan Chief Complaint/Hosp Course ASSESSMENT AND PLAN: Difficult 56-year-old female with history of CVA, panic attack, left hip replacement, who comes in with abdominal pain and signs of acute cholecystitis. 1. Abdominal pain - secondary to acute cholecystitis - on IV abx, has been refusing surgery. Also refused to participate with telepsychiatry. She was explained in details the risks of treating only with antibiotics versus surgical intervention which is the preferred option based on her exam and her laboratory results. The patient is still asking for frequent pain medications. We have explained the importance in detail about the risks of not proceeding with surgery at this point including spread of infection, sepsis, and even . As of now she agrees to the surgical option. Per pain mngt team, pt may be withdrawing from Zoloft, morphine and Xanax (she apparently was taking high doses of these meds as outpt). She may have component of bipolar ds as well. - for now, continue pain control medications (MEDICAL OPERATIONS SUPERVISOR pump per pain mngt team rec 's), Geodon, and antibiotics and n.p.o. status for now. - Monitor vital signs very carefully. - f/u palliative care team rec's - EKG showed NSR, and troponin was negative - pt is medically cleared for surgery. 2. Hx of prior CVA - continue to monitor for now, no present issues. 3. History of prior left hip replacement. Again, f/u PT consult. No present issues. 4. Leukocytosis, improved, secondary to #1. Continue to monitor for now. 5. History of panic attacks. There is Ativan written for p.r.n. Haldol prn IM. 6. Gastrointestinal prophylaxis, H2 bill. 7. Deep venous thrombosis prophylaxis, sequential compression devices. Problems: Subjective 24 Hr Interval Summary Free Text/Dictation Pt had EKG performed, on MEDICAL OPERATIONS SUPERVISOR pump now, received PICC, more calm in last 24 hrs now. Refusing Geodon med occasionally. Exam/Review of Systems Vital Signs Vitals Vital Signs Date Time Temp Pulse Resp B/P Pulse Ox O2 Delivery O2 Flow Rate FiO2 2/18/17 09:00 16 01/04/17 22:30 Nasal Cannula 2.0 01/02/17 21:00 98.4 99 157/79 97 Intake and Output 01/05/17 01/05/17 01/06/17 15:00 23:00 07:00 Intake Total 100 ml 680 ml 1250 ml Balance 100 ml 680 ml 1250 ml Exam GENERAL: The patient lying in bed, more alert. Less cranky. HEENT: Pupils equal, round, react to light. Extraocular muscles intact. NECK: Supple, no thyromegaly. LUNGS: Clear to auscultation bilaterally. CARDIOVASCULAR: S1, S2 heard. No rubs or gallops. ABDOMEN: some tenderness to palpation in the right upper quadrant area with some guarding. Slightly decreased bowel sounds. MUSCULOSKELETAL: No lower extremity edema bilaterally. NEUROLOGIC: No focal deficits. Results Result Diagram: 01/06/17 0440 01/06/17 0440 Results 24 hrs Laboratory Tests Test 01/05/17 13:00 01/05/17 14:00 01/06/17 04:40 Anion Gap 17 H 15 Blood Urea Nitrogen 13 12 Calcium Level 9.3 9.0 Carbon Dioxide Level 23 25 Chloride Level 103 103 Creatinine 0.66 0.65 Glucose Level 91 110 Potassium Level 3.7 3.5 Sodium Level 139 139 Basophils # 0.1 0.1 Basophils % 1.3 1.3 Blood Morphology Comment Eosinophils # 0.1 0.2 Eosinophils % 1.5 4.5 Hematocrit 33.5 L 31.3 L Hemoglobin 11.6 L 10.9 L Lymphocytes # 0.8 1.0 Lymphocytes % 14.5 L 23.4 Mean Corpuscular Hemoglobin 31.8 31.9 Mean Corpuscular Hemoglobin Concent 34.7 34.9 Mean Corpuscular Volume 91.8 91.4 Mean Platelet Volume 10.6 H 10.6 H Monocytes # 0.3 0.3 Monocytes % 4.4 7.8 Neutrophils # 4.5 2.8 Neutrophils % 78.3 H 63.0 Nucleated Red Blood Cells # 0.0 0.0 Nucleated Red Blood Cells % 0.0 0.0 Platelet Count 249 211 Red Blood Count 3.65 L 3.42 L Red Cell Distribution Width 14.2 14.4 Troponin I < 0.012 White Blood Count 5.7 # 4.4 #L Medications Medications Current Medications Dextrose/Sodium Chloride 1,000 ml @ 100 mls/hr Q10H IV Last administered on 08:19; Admin Dose 100 MLS/HR; Start 01/02/17 at 05:00 Piperacillin Sod/ Tazobactam Sod (Zosyn 3.375gm/ 100 ml (Pmx)) 100 ml @ 200 mls /hr Q6 IVPB Last administered on 01/06/17 05:20; Admin Dose 200 MLS/HR; Start 01/02/17 at 06:00 Ondansetron HCl (Zofran Inj) 4 mg Q6H PRN IV NAUSEA AND/OR VOMITING Last administered on 01/06/17 07:53; Admin Dose 4 MG; Start 01/02/17 at 05:00 Famotidine (Pepcid Iv) 20 mg BID IV Last administered on 01/05/17 20:40; Admin Dose 20 MG; Start 01/02/17 at 09:00 Nystatin (Nystatin Powder) 1 applic BID TOP Last administered on 01/03/17 08: 20; Admin Dose 1 APPLIC; Start 01/02/17 at 23:00 Hydromorphone HCl (Dilaudid) 1 mg Q4 PRN IV PAIN Last administered on 08:59; Admin Dose 1 MG; Start 01/04/17 at 13:00 Lorazepam (Ativan) 0.5 mg Q6 IV Last administered on 01/06/17 06:53; Admin Dose 0.5 MG; Start 01/04/17 at 14:00 Ziprasidone (Geodon) 20 mg BID PO Last administered on 01/05/17 20:40; Admin Dose 20 MG; Start 01/04/17 at 14:00 Hydromorphone HCl (Dilaudid MEDICAL OPERATIONS SUPERVISOR) 0.5 MG/HR CONTINUOUS RATE ... Q4PCA IV Last administered on 01/06/17 05:30; Admin Dose 6 MG; Start 01/04/17 at 12:30 IV Flush (NS 10 ml) 10 ml PRN PRN IV IV PROTOCOL; Start 01/05/17 at 12:30 CÉSAR ZEPEDA Jan 06, 2017 11:44
[2017-01-07] MEDS: HYDROmorphONE 0.2 MG/ML PCA IV SCH ×2 (05:20→15:53)
[2017-01-07] MEDS: PIPER-TAZO 3.375 GM IV (PMX) 100 ML IVPB SCH ×4 (06:21→23:57)
[2017-01-07] MEDS: LORAZEPAM 2 MG INJ IV SCH ×4 (07:03→23:53)
[2017-01-07] MEDS: HYDROmorphONE 1 MG/ML SYG IV PRN ×5 (07:51→23:34)
[2017-01-07 08:34] VITALS: BP 106/54; RESP 19
[2017-01-07] MEDS: ZIPRASIDONE 20 MG CAP PO SCH ×2 (09:10→21:00)
[2017-01-07] MEDS: NYSTATIN 30 GM POWDER BTL TOP SCH ×2 (09:10→23:33)
[2017-01-07] MEDS: FAMOTIDINE 20 MG INJ IV SCH ×2 (09:10→21:00)
[2017-01-07 10:27] LABS: BASOPHILS % 0.6 % (0.0-2.0); EOSINOPHILS # 0.2 10^3/ul (0.0-0.5); HEMATOCRIT 31.7 % (37.0-47.0); LYMPHOCYTES % 22.6 % (15.0-51.0); MEAN CORPUSCULAR HGB CONC 34.7 g/dl (32.0-37.0); MEAN CORPUSCULAR VOLUME 92.2 fl (82.0-101.0); MEAN PLATELET VOLUME 9.9 fl (7.4-10.4); MONOCYTE # 0.3 10^3/ul (0.3-0.9); MONOCYTES % 6.8 % (0.0-11.0); PLATELET COUNT 210 10^3/UL (140-440); RED BLOOD COUNT 3.44 10^6/ul (4.20-5.40); RED CELL DISTRIBUTION WIDTH 14.1 % (11.5-14.5); UNCORRECTED WBC 4.6 10^3/ul (4.8-10.8); WHITE BLOOD COUNT 4.6 10^3/ul (4.8-10.8)
[2017-01-07 10:31] LABS: POTASSIUM 3.5 mmol/L (3.5-5.1)
[2017-01-07 10:33] LABS: CONDITION 1
[2017-01-07 10:34] LABS: CALCIUM 8.9 mg/dl (8.4-10.2); CREATININE 0.64 mg/dl (0.44-1.00)
--- NOTE | 2017-01-07 10:40 | PN ---
Date/Time of Note Date/Time of Note DATE: 01/07/17 TIME: 10:40 Assessment/Plan VTE Prophylaxis VTE Prophylaxis Intervention: SCD's Lines/Catheters IV Catheter Type (from Nrsg): Central Line Central line still needed: Yes Urinary Cath still in place: No Assessment/Plan Chief Complaint/Hosp Course ASSESSMENT AND PLAN: Difficult 56-year-old female with history of CVA, panic attack, left hip replacement, who comes in with abdominal pain and signs of acute cholecystitis. 1. Abdominal pain - secondary to acute cholecystitis - on IV abx, has been refusing surgery (although appears to agree now to do it in 24 hrs?). Also refused to participate with telepsychiatry. She was explained in details the risks of treating only with antibiotics versus surgical intervention which is the preferred option based on her exam and her laboratory results. The patient is still asking for frequent pain medications. We have explained the importance in detail about the risks of not proceeding with surgery at this point including spread of infection, sepsis, and even . As of now she agrees to the surgical option. Per pain mngt team, pt may be withdrawing from Zoloft, morphine and Xanax (she apparently was taking high doses of these meds as outpt) . She may have component of bipolar ds as well. - for now, continue pain control medications (MOTOR PATROL OPERATOR pump per pain mngt team rec 's), Geodon, and antibiotics and n.p.o. status for now. - Monitor vital signs very carefully. - f/u palliative care team rec's - EKG showed NSR, and troponin was negative - pt is medically cleared for surgery. - tentative plan for surgery in 24 hrs (if pt continues to agree and does not change her mind again), f/u surgery rec's. 2. Hx of prior CVA - continue to monitor for now, no present issues. 3. History of prior left hip replacement. Again, f/u PT consult. No present issues. 4. Leukocytosis, improved, secondary to #1. Continue to monitor for now. 5. History of panic attacks. There is Ativan written for p.r.n. Haldol prn IM. 6. Gastrointestinal prophylaxis, H2 bill. 7. Deep venous thrombosis prophylaxis, sequential compression devices. Problems: Subjective 24 Hr Interval Summary Free Text/Dictation Still on MOTOR PATROL OPERATOR pump, seen by gen surgery. Exam/Review of Systems Vital Signs Vitals Vital Signs Date Time Temp Pulse Resp B/P Pulse Ox O2 Delivery O2 Flow Rate FiO2 01/07/17 09:00 18 01/07/17 08:34 98.2 67 106/54 93 01/04/17 22:30 Nasal Cannula 2.0 Intake and Output 01/06/17 01/06/17 01/07/17 15:00 23:00 07:00 Intake Total 550 ml 940 ml 450 ml Balance 550 ml 940 ml 450 ml Exam GENERAL: The patient lying in bed, more alert. Less cranky. HEENT: Pupils equal, round, react to light. Extraocular muscles intact. NECK: Supple, no thyromegaly. LUNGS: Clear to auscultation bilaterally. CARDIOVASCULAR: S1, S2 heard. No rubs or gallops. ABDOMEN: some tenderness to palpation in the right upper quadrant area with some guarding. Slightly decreased bowel sounds. MUSCULOSKELETAL: No lower extremity edema bilaterally. NEUROLOGIC: No focal deficits. Results Result Diagram: 01/07/17 1015 01/07/17 1015 Results 24 hrs Laboratory Tests Test 01/07/17 10:15 Anion Gap 13 Basophils # 0.0 Basophils % 0.6 Blood Urea Nitrogen 6 L Calcium Level 8.9 Carbon Dioxide Level 26 Chloride Level 105 Creatinine 0.64 Eosinophils # 0.2 Eosinophils % 4.0 Glucose Level 109 Hematocrit 31.7 L Hemoglobin 11.0 L Lymphocytes # 1.0 Lymphocytes % 22.6 Mean Corpuscular Hemoglobin 32.0 Mean Corpuscular Hemoglobin Concent 34.7 Mean Corpuscular Volume 92.2 Mean Platelet Volume 9.9 Monocytes # 0.3 Monocytes % 6.8 Neutrophils # 3.0 Neutrophils % 66.0 Nucleated Red Blood Cells # 0.0 Nucleated Red Blood Cells % 0.0 Platelet Count 210 Potassium Level 3.5 Red Blood Count 3.44 L Red Cell Distribution Width 14.1 Sodium Level 140 White Blood Count 4.6 L Medications Medications Current Medications Dextrose/Sodium Chloride 1,000 ml @ 100 mls/hr Q10H IV Last administered on t 23:18; Admin Dose 100 MLS/HR; Start 01/02/17 at 05:00 Piperacillin Sod/ Tazobactam Sod (Zosyn 3.375gm/ 100 ml (Pmx)) 100 ml @ 200 mls /hr Q6 IVPB Last administered on 01/07/17 06:21; Admin Dose 200 MLS/HR; Start 01/02/17 at 06:00 Ondansetron HCl (Zofran Inj) 4 mg Q6H PRN IV NAUSEA AND/OR VOMITING Last administered on 01/06/17 16:02; Admin Dose 4 MG; Start 01/02/17 at 05:00 Famotidine (Pepcid Iv) 20 mg BID IV Last administered on 01/07/17 09:10; Admin Dose 20 MG; Start 01/02/17 at 09:00 Nystatin (Nystatin Powder) 1 applic BID TOP Last administered on 01/07/17 09: 10; Admin Dose 1 APPLIC; Start 01/02/17 at 23:00 Hydromorphone HCl (Dilaudid) 1 mg Q4 PRN IV PAIN Last administered on 07:51; Admin Dose 1 MG; Start 01/04/17 at 13:00 Lorazepam (Ativan) 0.5 mg Q6 IV Last administered on 01/06/17 23:50; Admin Dose 0.5 MG; Start 01/04/17 at 14:00 Ziprasidone (Geodon) 20 mg BID PO Last administered on 01/07/17 09:10; Admin Dose 20 MG; Start 01/04/17 at 14:00 Hydromorphone HCl (Dilaudid MOTOR PATROL OPERATOR) 0.5 MG/HR CONTINUOUS RATE ... Q4PCA IV Last administered on 01/07/17 05:20; Admin Dose 6 MG; Start 01/04/17 at 12:30 IV Flush (NS 10 ml) 10 ml PRN PRN IV IV PROTOCOL; Start 01/05/17 at 12:30 CÉSAR ZEPEDA Jan 07, 2017 10:40
[2017-01-07] MEDS: DEXTROSE 5%-0.45% NACL 1,000 ML IV SCH (10:49)
--- NOTE | 2017-01-07 11:54 | PN ---
Date/Time of Note Date/Time of Note DATE: 01/07/17 TIME: 11:51 Assessment/Plan Lines/Catheters IV Catheter Type (from Nrs): Central Line Sanchez in Place (from Nrs): No Assessment/Plan Assessment/Plan 56-year-old female with clinical signs and symptoms of acute cholecystitis * Confirmed via CT scan and HIDA scan * Leukocytosis improved * Patient now allowing IV antibiotics. Continue * Has been medically cleared for surgery * Patient agreeable to surgery at this time, but become somewhat anxious when discussing risks and benefits with her. She did, however, calm down and remain agreeable * If patient continues to consent to surgery will put her on schedule for tomorrow. Subjective 24 Hr Interval Summary More calm today. Pain improved with meds, but still there. Afebrile. Exam/Review of Systems Vital Signs Vitals Vital Signs Date Time Temp Pulse Resp B/P Pulse Ox O2 Delivery O2 Flow Rate FiO2 01/07/17 09:00 18 01/07/17 08:34 98.2 67 106/54 93 01/04/17 22:30 Nasal Cannula 2.0 Intake and Output 01/06/17 01/06/17 01/07/17 15:00 23:00 07:00 Intake Total 550 ml 940 ml 450 ml Balance 550 ml 940 ml 450 ml Exam Free Text/Dictation GENERAL: Awake, alert, oriented 3. No acute distress. SKIN: No jaundice. ABDOMEN: Soft, obese, still with right upper quadrant tenderness to palpation, but slightly improved. Results Result Diagram: 01/07/17 1015 01/07/17 1015 GABE MONTANO MD Jan 07, 2017 11:53
--- NOTE | 2017-01-07 14:11 | RADRPT ---
PROCEDURE: XR Chest. CLINICAL INDICATION: Preop. Abdominal pain. TECHNIQUE: Single frontal view. COMPARISON: 01/05/2017. FINDINGS: There is a right arm PICC line with the tip in the lower superior vena cava. The lungs are clear. The heart size is normal. There is calcification in the aorta consistent with atherosclerosis. There is no pleural effusion or pneumothorax. There is an old healed fracture of the mid left clavicle. IMPRESSION: 1. Right arm PICC line. 2. Clear lungs. 3. Atherosclerosis. 4. Old healed left clavicle fracture. RPTAT: QQ .Jaron Mcleod MD, MD Date Time Electronically viewed and signed by .Jaron Mcleod MD, on 01/07/2017 14:11 .R/
[2017-01-08] VITALS (24 sets, daily range): BP systolic 119–178; BP diastolic 56–84; PULSE 69–100; RESP 12–19
[2017-01-08] MEDS: DEXTROSE 5%-0.45% NACL 1,000 ML IV SCH ×3 (01:55→22:23)
[2017-01-08] MEDS: HYDROmorphONE 0.2 MG/ML PCA IV SCH ×3 (02:56→21:32)
[2017-01-08] MEDS: PIPER-TAZO 3.375 GM IV (PMX) 100 ML IVPB SCH ×4 (06:12→23:46)
[2017-01-08] MEDS: LORAZEPAM 2 MG INJ IV SCH ×4 (06:13→23:46)
[2017-01-08] MEDS: FAMOTIDINE 20 MG INJ IV SCH ×2 (08:06→22:20)
[2017-01-08] MEDS: ZIPRASIDONE 20 MG CAP PO SCH ×2 (08:06→22:20)
[2017-01-08] MEDS: NYSTATIN 30 GM POWDER BTL TOP SCH ×2 (08:07→22:20)
[2017-01-08] MEDS: HYDROmorphONE 1 MG/ML SYG IV PRN ×2 (09:45→13:41)
[2017-01-08 12:05] LABS: ALBUMIN 2.9 g/dl (3.3-4.9)
[2017-01-08 12:06] LABS: POTASSIUM 3.3 mmol/L (3.5-5.1)
[2017-01-08 12:08] LABS: ALBUMIN/GLOBULIN RATIO 1.2; BILIRUBIN,INDIRECT 0.2 mg/dl (0-1.1); BILIRUBIN,TOTAL 0.2 mg/dl (0.2-1.3); CREATININE 0.69 mg/dl (0.44-1.00); TOTAL PROTEIN 5.3 g/dl (6.1-8.1)
[2017-01-08 12:09] LABS: CALCIUM 8.9 mg/dl (8.4-10.2)
--- NOTE | 2017-01-08 12:19 | PN ---
Date/Time of Note Date/Time of Note DATE: 01/08/17 TIME: 12:14 Assessment/Plan VTE Prophylaxis VTE Prophylaxis Intervention: SCD's Lines/Catheters IV Catheter Type (from Nrsg): PICC Line Central line still needed: Yes Assessment/Plan Assessment/Plan Difficult 56-year-old female with history of CVA, panic attack, left hip replacement, who comes in with abdominal pain and signs of acute cholecystitis. 1. Acute Cholecystitis 2. S/p Prior LHR 3. Chronic Anxiety d/o r/o Bipolar d/o 4. Prev CVA 5. Chronic NC Anemia ? source PLAN: Continue pain control/ antiemetics/ antipyretics/ supportive care Appreciate all consultants Planned for Lap elkin today PROPHYLAXIS: SCDs / H2 blockers Subjective 24 Hr Interval Summary Free Text/Dictation Patient seen and examined. No new complaints Abdomen is "so so" Gastrointestinal: pain Exam/Review of Systems Vital Signs Vitals Vital Signs Date Time Temp Pulse Resp B/P Pulse Ox O2 Delivery O2 Flow Rate FiO2 01/08/17 09:00 18 01/07/17 08:34 98.2 67 106/54 93 01/04/17 22:30 Nasal Cannula 2.0 Intake and Output 01/07/17 01/07/17 01/08/17 15:00 23:00 07:00 Intake Total 800 ml 250 ml 1400 ml Balance 800 ml 250 ml 1400 ml Exam Constitutional: alert Head: normocephalic ENMT: mucosa pink and moist Respiratory: clear to auscultation Cardiovascular: regular rate and rhythm Gastrointestinal: bowel sounds, soft, tender (mildly) Extremities: No edema Results Result Diagram: 01/07/17 1015 01/07/17 1015 Medications Medications Current Medications Dextrose/Sodium Chloride 1,000 ml @ 100 mls/hr Q10H IV Last administered on 11:37; Admin Dose 100 MLS/HR; Start 01/02/17 at 05:00 Piperacillin Sod/ Tazobactam Sod (Zosyn 3.375gm/ 100 ml (Pmx)) 100 ml @ 200 mls /hr Q6 IVPB Last administered on 01/08/17 11:37; Admin Dose 200 MLS/HR; Start 01/02/17 at 06:00 Ondansetron HCl (Zofran Inj) 4 mg Q6H PRN IV NAUSEA AND/OR VOMITING Last administered on 01/06/17 16:02; Admin Dose 4 MG; Start 01/02/17 at 05:00 Famotidine (Pepcid Iv) 20 mg BID IV Last administered on 01/07/17 09:10; Admin Dose 20 MG; Start 01/02/17 at 09:00 Nystatin (Nystatin Powder) 1 applic BID TOP Last administered on 01/07/17 23: 33; Admin Dose 1 APPLIC; Start 01/02/17 at 23:00 Hydromorphone HCl (Dilaudid) 1 mg Q4 PRN IV PAIN Last administered on 09:45; Admin Dose 1 MG; Start 01/04/17 at 13:00 Lorazepam (Ativan) 0.5 mg Q6 IV Last administered on 01/08/17 11:37; Admin Dose 0.5 MG; Start 01/04/17 at 14:00 Ziprasidone (Geodon) 20 mg BID PO Last administered on 01/07/17 09:10; Admin Dose 20 MG; Start 01/04/17 at 14:00 Hydromorphone HCl (Dilaudid YARDER ENGINEER) 0.5 MG/HR CONTINUOUS RATE ... Q4PCA IV Last administered on 01/08/17 02:56; Admin Dose 6 MG; Start 01/04/17 at 12:30 IV Flush (NS 10 ml) 10 ml PRN PRN IV IV PROTOCOL; Start 01/05/17 at 12:30 GÓMEZ SEN Jan 08, 2017 12:19
--- NOTE | 2017-01-08 17:28 | HPN ---
Date/Time of Note Date/Time of Note DATE: 01/08/17 TIME: 17:27 Interval H&P Admission Note Pt. seen H&P reviewed: No system changes GABE MONTANO MD Jan 08, 2017 17:28
[2017-01-08] MEDS ORDERED: LIDOCAINE 2% (SDV) 5 ML INJ ONE (17:48)
[2017-01-08] MEDS ORDERED: MIDAZOLAM 1 MG/ML 2 ML INJ ONE (17:48)
[2017-01-08] MEDS ORDERED: ROCURONIUM 50 MG INJ ONE (17:48)
[2017-01-08] MEDS ORDERED: PROPOFOL 20 ML ONE (17:48)
[2017-01-08] MEDS ORDERED: FENTAnyl 50 MCG/ML VIAL ONE (17:55)
[2017-01-08] MEDS ORDERED: HYDROmorphONE 2 MG/ML SYG ONE (18:05)
[2017-01-08] MEDS ORDERED: EPHEDrine SULFATE 50 MG/5 ML SYG ONE (18:08)
[2017-01-08] MEDS ORDERED: hydrALAzine 20 MG INJ ONE (18:23)
[2017-01-08] MEDS ORDERED: BUPIVACAINE 0.25% (MPF) 30 ML INJ ONE (18:27)
[2017-01-08] MEDS ORDERED: HYDROmorphONE (0.2 MG/ML) 10ML SYG IV PRN ×2 (18:30)
[2017-01-08] MEDS ORDERED: PROCHLORPERAZINE 10 MG INJ IV PRN (18:30)
[2017-01-08] MEDS ORDERED: ONDANSETRON 4 MG INJ IV PRN (18:30)
[2017-01-08] MEDS ORDERED: FAMOTIDINE 20 MG INJ ONE (18:38)
[2017-01-08] MEDS ORDERED: ONDANSETRON 4 MG INJ ONE (18:38)
[2017-01-08] MEDS ORDERED: DEXAMETHASONE 4 MG/ML 1 ML INJ ONE (18:38)
[2017-01-08] MEDS: HYDROmorphONE (0.2 MG/ML) 10ML SYG IV PRN ×2 (20:30→20:56)
--- NOTE | 2017-01-08 20:49 | OPR ---
DATE OF OPERATION: 01/08/2017 PREOPERATIVE DIAGNOSIS: Acute cholecystitis. POSTOPERATIVE DIAGNOSES: 1. Acute cholecystitis. 2. Pericholecystic abscess. OPERATION PERFORMED: 1. Laparoscopic cholecystectomy. 2. Drainage of pericholecystic abscess. 3. Placement of drain. SURGEON: Ambrose Florentino MD BREAKER ENGINEER: None. ANESTHESIA: General endotracheal. ANESTHESIOLOGIST: Dr. Ward FLUIDS: Crystalloid. ESTIMATED BLOOD LOSS: 100 mL. SPECIMEN: Gallbladder. DRAINS: A 19-Beninese Román drain. INDICATIONS FOR SURGERY: The patient is a 56-year-old obese female with history of CVA, panic attack, and left hip replacement who presented to the emergency room complaining of a 1-day history of right upper quadrant abdominal pain. The patient was initially seen by a general surgeon and diagnosed with acute cholecystitis, which was confirmed via both a CT scan and HIDA scan; however, the patient is belligerent and very emotionally labile and did not want to continue with the primary surgeon. Therefore, I was asked to see her in second opinion. She was initially recommended for cholecystectomy on 01/02/2017. However, the patient has been abusive verbally to staff and her caretakers, refusing IV antibiotics and other treatments, and initially refusing surgery. Her pain, however, did not improve and eventually she consented for surgical intervention. After obtaining medical clearance which took a while due to her refusal, she was then scheduled for laparoscopic cholecystectomy, possible open, as definitive treatment to prevent further sequelae of gallstone disease, which include but are not limited to gangrenous cholecystitis, choledocholithiasis, gallstone pancreatitis, ascending cholangitis, etc. All risks and benefits of the procedure including but not limited to wound infection, excessive bleeding, common bile duct injury, postoperative biliary leak, retained common bile duct stone, conversion to open procedure, etc. were all explained to the patient in full detail. The patient understood and wished to proceed with the procedure. Informed consent was therefore obtained. PROCEDURE IN DETAIL: The patient was brought to the operating room and placed supine on the operating table. Bilateral sequential compression devices were placed on both lower extremities and the patient's scheduled dose of broad- spectrum intravenous antibiotics was given. After the induction of smooth general endotracheal anesthesia, the patient's abdomen was prepped and draped in standard surgical fashion. After performance of a surgical time-out, a 5 mm incision was made in the inferior umbilicus and a Veress needle was used to access the intraabdominal cavity atraumatically. Pneumoperitoneum was then obtained and the Veress needle was exchanged for a 5 mm trocar through which a 5 mm laparoscope was placed. Three further working ports were then placed, a 12 mm port in the subxiphoid region and two 5 mm ports in the right upper quadrant. All port sites were anesthetized with 0.25% Marcaine prior to incision. Diagnostic laparoscopy showed the omentum to be plastered against the gallbladder in the right upper quadrant. The omentum was attempted to be swept off the gallbladder; however, there were dense inflammatory adhesions plastering the omentum against the gallbladder. The omentum was tediously dissected down using the hook electrocautery. A massively distended and erythematous gallbladder was identified. It was decompressed using a decompressing needle inserted through the lateral most trocar site in order to be grasped. Approximately 150 mL of clear hydropic bile was aspirated from the gallbladder. This enabled the gallbladder to be grasped and retracted superiorly and laterally exposing the area of Kurtis pouch. There were very thick inflammatory tissues in this area from acute inflammation. Dissection was difficult and was done very tediously. Eventually, a tubular structure was identified as it entered into the neck of the gallbladder. It was dissected free of surrounding tissues and then transected using a laparoscopic MADIHA stapler high up near the gallbladder. Dissection was then done posteriorly. There was a lot of oozing from the inflammatory tissues, so therefore, a Harmonic scalpel was used to do the dissection of this portion and to seal the cystic artery in the course of dissection, which was done. The gallbladder was then dissected off of the liver bed using hook electrocautery. There were very dense adhesions of the gallbladder to the liver bed, almost cement like. In the course of posterior dissection, a pericholecystic abscess was entered and suctioned out. There was obliteration of any normal planes, therefore, during the course of dissecting the gallbladder off the liver bed, a defect was made within the gallbladder. After much tedious dissection, the gallbladder was then able to be completely free from the liver bed, it was placed in an EndoCatch bag and withdrawn through the subxiphoid port site, which had to be enlarged to accommodate the large thick walled gallbladder. Once completely withdrawn from field, it was passed off the field as specimen. Hemostasis was then obtained on the liver bed using a combination of direct pressure and hook electrocautery. Once adequate hemostasis was obtained, due to the nature of the acute inflammation and pericholecystic abscess, it was elected to leave a 19 -Beninese round Román drain in the area of the gallbladder fossa. This was brought out through the lateral most port site and secured in place using a 2-0 nylon suture and hooked up to bulb suction. Abdomen was copiously irrigated with several liters of warm normal saline until the irrigant returned clear. At this point, pneumoperitoneum was released and all trocars were withdrawn under direct vision. The fascia at of the subxiphoid port site was reapproximated using 0 Vicryl suture in running fashion. Subcutaneous tissues were irrigated with more warm normal saline and further local anesthesia was applied around the skin of the incision sites. The incisions were then reapproximated using 4-0 Monocryl sutures in subcuticular fashion. The incisions were cleaned and Dermabond was applied as well as a drain dressing. The patient was awoke from anesthesia and transported to the recovery room in stable condition. All counts were correct at the end of case x2. Dictated By: AMBROSE BRUNSON/GRIFFIN Conf#: [id number] DID#: [id number] CC: ALEX CHANEY MD;*EndCC* MTDD
[2017-01-08] MEDS ORDERED: MIDAZOLAM 1 MG/ML 2 ML INJ IV PRN (21:00)
[2017-01-08] MEDS ORDERED: LABETALOL HCL 20MG INJ IV PRN (21:00)
[2017-01-08] MEDS ORDERED: hydrALAzine 20 MG INJ IV PRN (21:00)
[2017-01-08] MEDS: DOCUSATE SODIUM 100 MG CAP PO SCH (22:20)
[2017-01-09] MEDS: HYDROmorphONE 1 MG/ML SYG IV PRN ×6 (00:10→22:11)
[2017-01-09 00:45] VITALS: BP 154/79; PULSE 76; RESP 18
[2017-01-09] MEDS: DEXTROSE 5%-0.45% NACL 1,000 ML IV SCH (04:43)
[2017-01-09 05:32] VITALS: BP 141/79; PULSE 86; RESP 18
[2017-01-09 06:03] LABS: BASOPHILS % 0.5 % (0.0-2.0); EOSINOPHILS % 0.1 % (0.0-7.0); HEMATOCRIT 32.2 % (37.0-47.0); HEMOGLOBIN 11.2 g/dl (12.0-16.0); LYMPHOCYTES # 0.8 10^3/ul (0.8-2.9); LYMPHOCYTES % 9.1 % (15.0-51.0); MEAN CORPUSCULAR HEMOGLOBIN 31.9 pg (29.0-33.0); MEAN CORPUSCULAR HGB CONC 34.6 g/dl (32.0-37.0); MEAN PLATELET VOLUME 10.8 fl (7.4-10.4); MONOCYTE # 0.4 10^3/ul (0.3-0.9); MONOCYTES % 4.6 % (0.0-11.0); NEUTROPHIL # 7.4 10^3/ul (1.6-7.5); NEUTROPHILS % 85.7 % (39.0-77.0); PLATELET COUNT 227 10^3/UL (140-440); RED CELL DISTRIBUTION WIDTH 14.2 % (11.5-14.5); UNCORRECTED WBC 8.7 10^3/ul (4.8-10.8); WHITE BLOOD COUNT 8.7 10^3/ul (4.8-10.8)
[2017-01-09] MEDS: PIPER-TAZO 3.375 GM IV (PMX) 100 ML IVPB SCH ×3 (06:06→18:00)
[2017-01-09] MEDS: LORAZEPAM 2 MG INJ IV SCH ×3 (06:09→17:55)
[2017-01-09 06:14] LABS: CONDITION 1
[2017-01-09 06:17] LABS: ALBUMIN 2.9 g/dl (3.3-4.9); POTASSIUM 3.3 mmol/L (3.5-5.1)
[2017-01-09 06:19] LABS: CREATININE 0.61 mg/dl (0.44-1.00)
[2017-01-09 06:20] LABS: ALBUMIN/GLOBULIN RATIO 1.26; BILIRUBIN,INDIRECT 0.1 mg/dl (0-1.1); BILIRUBIN,TOTAL 0.1 mg/dl (0.2-1.3); CALCIUM 8.8 mg/dl (8.4-10.2); TOTAL PROTEIN 5.2 g/dl (6.1-8.1)
[2017-01-09] MEDS: HYDROmorphONE 0.2 MG/ML PCA IV SCH ×2 (07:36→18:50)
[2017-01-09] MEDS: DOCUSATE SODIUM 100 MG CAP PO SCH (08:49)
[2017-01-09] MEDS: NYSTATIN 30 GM POWDER BTL TOP SCH ×2 (08:49→21:00)
[2017-01-09] MEDS: FAMOTIDINE 20 MG INJ IV SCH ×2 (08:49→21:20)
[2017-01-09] MEDS: ZIPRASIDONE 20 MG CAP PO SCH ×2 (08:49→21:00)
--- NOTE | 2017-01-09 09:25 | PN ---
Date/Time of Note Date/Time of Note DATE: 01/09/17 TIME: 09:22 Assessment/Plan Lines/Catheters IV Catheter Type (from Nrs): Peripheral IV Sanchez in Place (from Nrs): No Assessment/Plan Assessment/Plan 56-year-old female with acute cholecystitis s/p Lap Duyen POD#1 * Continue IV Abx * Continue Drain * Advance diet * Start Lovenox * Labs OK * Hopefully d/c in AM if remains stable * Will remove drain prior to d/c Subjective 24 Hr Interval Summary Complains of soreness around incisions. Continues to refuse vitals, meds, etc. Afebrile. Drain output 55cc serosanguineous. Exam/Review of Systems Vital Signs Vitals Vital Signs Date Time Temp Pulse Resp B/P Pulse Ox O2 Delivery O2 Flow Rate FiO2 01/09/17 05:32 97.6 86 18 141/79 97 Nasal Cannula 2.0 Intake and Output 01/08/17 01/08/17 01/09/17 15:00 23:00 07:00 Intake Total 800 ml 1350 ml 1000 ml Output Total 105 ml 50 ml Balance 800 ml 1245 ml 950 ml Exam Free Text/Dictation GENERAL: Awake, alert, oriented 3. No acute distress. SKIN: No jaundice. ABDOMEN: Soft, obese, appropriate incisional tenderness to palpation INCISIONS: clean, dry, intact Results Result Diagram: 01/09/1724 01/09/1724 GABE MONTANO MD Jan 09, 2017 09:25
[2017-01-09] MEDS: ENOXAPARIN 40 MG/0.4 ML SYG SC SCH (11:49)
--- NOTE | 2017-01-09 13:16 | PN ---
Date/Time of Note Date/Time of Note DATE: 01/09/17 TIME: 13:11 Assessment/Plan VTE Prophylaxis VTE Prophylaxis Intervention: other (lovenox) Lines/Catheters IV Catheter Type (from Nrsg): PICC Line Central line still needed: Yes Urinary Cath still in place: No Assessment/Plan Assessment/Plan Difficult 56-year-old female with history of CVA, panic attack, left hip replacement, who comes in with abdominal pain and signs of acute cholecystitis. 1. Acute Cholecystitis s/p lap elkin 01/08/17 2. S/p Prior LHR 3. Chronic Anxiety d/o r/o Bipolar d/o 4. Prev CVA 5. Chronic NC Anemia ? source PLAN: Continue post op pain control/ antiemetics/ antipyretics/ supportive care Encourage OOB / PT eval Appreciate all consultants PROPHYLAXIS: SCDs / H2 blockers Subjective 24 Hr Interval Summary Free Text/Dictation c/o pain at op site Exam/Review of Systems Vital Signs Vitals Vital Signs Date Time Temp Pulse Resp B/P Pulse Ox O2 Delivery O2 Flow Rate FiO2 01/09/17 13:00 16 01/09/17 08:45 Nasal Cannula 2.0 01/09/17 05:32 97.6 86 141/79 97 Intake and Output 01/08/17 01/08/17 01/09/17 15:00 23:00 07:00 Intake Total 800 ml 1350 ml 1000 ml Output Total 105 ml 50 ml Balance 800 ml 1245 ml 950 ml Exam Constitutional: alert, obese, oriented Psych: anxiety Head: normocephalic Eyes: PERRL, No icteric ENMT: mucosa pink and moist Neck: supple Respiratory: diminished breath sounds Cardiovascular: regular rate and rhythm, No murmurs/extra sounds Gastrointestinal: other (patient allowed visualization only), surgical scars ( look clean without oozing) Extremities: No edema Neurological: nl mental status, No focal weakness Results Result Diagram: 01/09/1752301/09/17523 Results 24 hrs Laboratory Tests Test 01/09/17 05:24 Alanine Aminotransferase (ALT/SGPT) 26 Albumin 2.9 L Albumin/Globulin Ratio 1.26 Alkaline Phosphatase 85 Anion Gap 11 Aspartate Amino Transf (AST/SGOT) 26 Basophils # 0.0 Basophils % 0.5 Blood Morphology Comment Blood Urea Nitrogen 5 L Calcium Level 8.8 Carbon Dioxide Level 28 Chloride Level 103 Creatinine 0.61 Direct Bilirubin 0.00 Eosinophils # 0.0 Eosinophils % 0.1 Globulin 2.30 Glucose Level 125 Hematocrit 32.2 L Hemoglobin 11.2 L Indirect Bilirubin 0.1 Lymphocytes # 0.8 Lymphocytes % 9.1 L Mean Corpuscular Hemoglobin 31.9 Mean Corpuscular Hemoglobin Concent 34.6 Mean Corpuscular Volume 92.0 Mean Platelet Volume 10.8 H Monocytes # 0.4 Monocytes % 4.6 Neutrophils # 7.4 Neutrophils % 85.7 H Nucleated Red Blood Cells # 0.0 Nucleated Red Blood Cells % 0.0 Platelet Count 227 Potassium Level 3.3 L Red Blood Count 3.50 L Red Cell Distribution Width 14.2 Sodium Level 139 Total Bilirubin 0.1 L Total Protein 5.2 L White Blood Count 8.7 # Medications Medications Current Medications Dextrose/Sodium Chloride 1,000 ml @ 100 mls/hr Q10H IV Last administered on 04:43; Admin Dose 100 MLS/HR; Start 01/02/17 at 05:00 Piperacillin Sod/ Tazobactam Sod (Zosyn 3.375gm/ 100 ml (Pmx)) 100 ml @ 200 mls /hr Q6 IVPB Last administered on 01/09/17 11:42; Admin Dose 200 MLS/HR; Start 01/02/17 at 06:00 Ondansetron HCl (Zofran Inj) 4 mg Q6H PRN IV NAUSEA AND/OR VOMITING Last administered on 01/06/17 16:02; Admin Dose 4 MG; Start 01/02/17 at 05:00 Famotidine (Pepcid Iv) 20 mg BID IV Last administered on 01/08/17 22:20; Admin Dose 20 MG; Start 01/02/17 at 09:00 Nystatin (Nystatin Powder) 1 applic BID TOP Last administered on 01/07/17 23: 33; Admin Dose 1 APPLIC; Start 01/02/17 at 23:00 Hydromorphone HCl (Dilaudid) 1 mg Q4 PRN IV PAIN Last administered on 08:49; Admin Dose 1 MG; Start 01/04/17 at 13:00 Lorazepam (Ativan) 0.5 mg Q6 IV Last administered on 01/09/17 11:42; Admin Dose 0.5 MG; Start 01/04/17 at 14:00 Ziprasidone (Geodon) 20 mg BID PO Last administered on 01/07/17 09:10; Admin Dose 20 MG; Start 01/04/17 at 14:00 Hydromorphone HCl (Dilaudid PARKING LOT SIGNALER) 0.5 MG/HR CONTINUOUS RATE ... Q4PCA IV Last administered on 01/09/17 07:36; Admin Dose 6 MG; Start 01/04/17 at 12:30 IV Flush (NS 10 ml) 10 ml PRN PRN IV IV PROTOCOL; Start 01/05/17 at 12:30 Docusate Sodium (Colace) 100 mg BID PO ; Start 01/08/17 at 21:00 Enoxaparin Sodium (Lovenox) 40 mg DAILY SC Last administered on 01/09/17 11:49 ; Admin Dose 40 MG; Start 01/09/17 at 11:00 GÓMEZ SEN Jan 09, 2017 13:15
[2017-01-09] MEDS: DOCUSATE SODIUM 250 MG CAP PO SCH (14:00)
[2017-01-09] MEDS ORDERED: POTASSIUM CHLORIDE 250 ML IVPB SCH (15:00)
--- NOTE | 2017-01-09 19:30 | RADRPT ---
Vent Rate: 80 bpm RR Interval: 0 msec WI Interval: 166 msec QRS Duration: 82 msec QT Interval: 384 msec QTC Interval: 442 msec P-R-T [place]: 68 - 76 - 50 degrees Normal sinus rhythm Low voltage QRS Cannot rule out Anterior infarct , age undetermined Abnormal ECG Electronically Signed By: Hebert Meyers [id number]
[2017-01-09 21:00] VITALS: BP 138/74; PULSE 87; RESP 19
[2017-01-09] MEDS: SENNA TAB PO SCH (21:00)
[2017-01-10] MEDS: PIPER-TAZO 3.375 GM IV (PMX) 100 ML IVPB SCH ×4 (00:05→18:35)
[2017-01-10] MEDS: LORAZEPAM 2 MG INJ IV SCH ×4 (00:05→18:35)
[2017-01-10 05:16] LABS: BASOPHIL # 0.1 10^3/ul (0.0-0.1); BASOPHILS % 1.3 % (0.0-2.0); EOSINOPHILS # 0.2 10^3/ul (0.0-0.5); EOSINOPHILS % 3.6 % (0.0-7.0); HEMATOCRIT 30.9 % (37.0-47.0); HEMOGLOBIN 10.4 g/dl (12.0-16.0); LYMPHOCYTES # 1.2 10^3/ul (0.8-2.9); LYMPHOCYTES % 23.2 % (15.0-51.0); MEAN CORPUSCULAR HEMOGLOBIN 31.3 pg (29.0-33.0); MEAN CORPUSCULAR HGB CONC 33.8 g/dl (32.0-37.0); MEAN CORPUSCULAR VOLUME 92.6 fl (82.0-101.0); MEAN PLATELET VOLUME 10.7 fl (7.4-10.4); MONOCYTE # 0.4 10^3/ul (0.3-0.9); NEUTROPHIL # 3.2 10^3/ul (1.6-7.5); NEUTROPHILS % 63.9 % (39.0-77.0); PLATELET COUNT 186 10^3/UL (140-440); RED BLOOD COUNT 3.34 10^6/ul (4.20-5.40); RED CELL DISTRIBUTION WIDTH 14.2 % (11.5-14.5)
[2017-01-10] MEDS: HYDROmorphONE 1 MG/ML SYG IV PRN ×5 (05:17→20:37)
[2017-01-10 05:33] LABS: CONDITION 1
[2017-01-10 05:39] LABS: ALBUMIN 2.6 g/dl (3.3-4.9); POTASSIUM 3.6 mmol/L (3.5-5.1)
[2017-01-10 05:41] LABS: CREATININE 0.69 mg/dl (0.44-1.00)
[2017-01-10 05:42] LABS: ALBUMIN/GLOBULIN RATIO 1.04; TOTAL PROTEIN 5.1 g/dl (6.1-8.1)
[2017-01-10 05:43] LABS: CALCIUM 8.6 mg/dl (8.4-10.2)
[2017-01-10] MEDS: HYDROmorphONE 0.2 MG/ML PCA IV SCH ×2 (06:26→16:56)
[2017-01-10] MEDS: FAMOTIDINE 20 MG INJ IV SCH (08:42)
[2017-01-10] MEDS: NYSTATIN 30 GM POWDER BTL TOP SCH ×2 (08:46→20:40)
[2017-01-10] MEDS: ZIPRASIDONE 20 MG CAP PO SCH ×2 (08:47→20:40)
[2017-01-10] MEDS: DOCUSATE SODIUM 250 MG CAP PO SCH (08:47)
[2017-01-10 08:53] VITALS: BP 121/58; RESP 20
[2017-01-10] MEDS ORDERED: DOCUSATE SODIUM 100 MG CAP PO SCH (09:00)
[2017-01-10] MEDS: ENOXAPARIN 40 MG/0.4 ML SYG SC SCH (11:50)
--- NOTE | 2017-01-10 12:13 | PN ---
Date/Time of Note Date/Time of Note DATE: 01/10/17 TIME: 12:12 Assessment/Plan VTE Prophylaxis VTE Prophylaxis Intervention: SCD's Lines/Catheters IV Catheter Type (from Nrsg): PICC Line Central line still needed: Yes Urinary Cath still in place: No Assessment/Plan Assessment/Plan Difficult 56-year-old female with history of CVA, panic attack, left hip replacement, who comes in with abdominal pain and signs of acute cholecystitis. 1. Acute Cholecystitis s/p lap elkin 01/08/17 2. S/p Prior LHR 3. Chronic Anxiety d/o r/o Bipolar d/o 4. Prev CVA 5. Chronic NC Anemia ? source PLAN: Continue post op pain control/ antiemetics/ antipyretics/ supportive care Encourage OOB / PT eval Appreciate all consultants PROPHYLAXIS: SCDs / H2 blockers Subjective 24 Hr Interval Summary Free Text/Dictation C/O generalized pain Exam/Review of Systems Vital Signs Vitals Vital Signs Date Time Temp Pulse Resp B/P Pulse Ox O2 Delivery O2 Flow Rate FiO2 01/10/17 08:53 99.4 76 20 121/58 98 01/09/17 21:00 Nasal Cannula 2.0 Intake and Output 01/09/17 01/09/17 01/10/17 15:00 23:00 07:00 Intake Total 100 ml 400 ml 600 ml Output Total 40 ml Balance 100 ml 360 ml 600 ml Exam Constitutional: alert, obese, oriented Psych: anxiety Head: normocephalic Eyes: PERRL, No icteric ENMT: mucosa pink and moist Neck: supple Respiratory: diminished breath sounds Cardiovascular: regular rate and rhythm, No murmurs/extra sounds Gastrointestinal: other (patient allowed visualization only), surgical scars ( look clean without oozing) Extremities: No edema Neurological: nl mental status, No focal weakness Results Result Diagram: 01/10/175 01/10/17 043 Results 24 hrs Laboratory Tests Test 01/10/17 04:35 Alanine Aminotransferase (ALT/SGPT) 21 Albumin 2.6 L Albumin/Globulin Ratio 1.04 Alkaline Phosphatase 73 Anion Gap 12 Aspartate Amino Transf (AST/SGOT) 16 Basophils # 0.1 Basophils % 1.3 Blood Morphology Comment Blood Urea Nitrogen 5 L Calcium Level 8.6 Carbon Dioxide Level 28 Chloride Level 104 Creatinine 0.69 Direct Bilirubin 0.00 Eosinophils # 0.2 Eosinophils % 3.6 Globulin 2.50 Glucose Level 105 Hematocrit 30.9 L Hemoglobin 10.4 L Indirect Bilirubin 0.0 Lymphocytes # 1.2 Lymphocytes % 23.2 Magnesium Level 1.6 L Mean Corpuscular Hemoglobin 31.3 Mean Corpuscular Hemoglobin Concent 33.8 Mean Corpuscular Volume 92.6 Mean Platelet Volume 10.7 H Monocytes # 0.4 Monocytes % 8.0 Neutrophils # 3.2 Neutrophils % 63.9 Nucleated Red Blood Cells # 0.0 Nucleated Red Blood Cells % 0.0 Platelet Count 186 Potassium Level 3.6 Red Blood Count 3.34 L Red Cell Distribution Width 14.2 Sodium Level 140 Total Bilirubin 0.0 L Total Protein 5.1 L White Blood Count 5.0 # Medications Medications Current Medications Piperacillin Sod/ Tazobactam Sod (Zosyn 3.375gm/ 100 ml (Pmx)) 100 ml @ 200 mls /hr Q6 IVPB Last administered on 01/10/17 11:47; Admin Dose 200 MLS/HR; Start 01/02/17 at 06:00 Ondansetron HCl (Zofran Inj) 4 mg Q6H PRN IV NAUSEA AND/OR VOMITING Last administered on 01/06/17 16:02; Admin Dose 4 MG; Start 01/02/17 at 05:00 Famotidine (Pepcid Iv) 20 mg BID IV Last administered on 01/10/17 08:42; Admin Dose 20 MG; Start 01/02/17 at 09:00 Nystatin (Nystatin Powder) 1 applic BID TOP Last administered on 01/07/17 23: 33; Admin Dose 1 APPLIC; Start 01/02/17 at 23:00 Hydromorphone HCl (Dilaudid) 1 mg Q4 PRN IV PAIN Last administered on 08:43; Admin Dose 1 MG; Start 01/04/17 at 13:00 Lorazepam (Ativan) 0.5 mg Q6 IV Last administered on 01/10/17 11:47; Admin Dose 0.5 MG; Start 01/04/17 at 14:00 Ziprasidone (Geodon) 20 mg BID PO Last administered on 01/07/17 09:10; Admin Dose 20 MG; Start 01/04/17 at 14:00 Hydromorphone HCl (Dilaudid AIDS NURSE) 0.5 MG/HR CONTINUOUS RATE ... Q4PCA IV Last administered on 01/10/17 06:26; Admin Dose 6 MG; Start 01/04/17 at 12:30 IV Flush (NS 10 ml) 10 ml PRN PRN IV IV PROTOCOL; Start 01/05/17 at 12:30 Enoxaparin Sodium (Lovenox) 40 mg DAILY SC Last administered on 01/10/17 11:50 ; Admin Dose 40 MG; Start 01/09/17 at 11:00 Senna (Senokot) 2 tab QHS PO ; Start 01/09/17 at 21:00 Docusate Sodium (Colace) 250 mg DAILY PO ; Start 01/09/17 at 14:00 GÓMEZ SEN Jan 10, 2017 12:13
--- NOTE | 2017-01-10 12:40 | PN ---
Date/Time of Note Date/Time of Note DATE: 01/10/17 TIME: 12:38 Assessment/Plan Lines/Catheters IV Catheter Type (from [facility]): PICC Line Sanchez in Place (from [facility]): No Assessment/Plan Assessment/Plan 56-year-old female with acute cholecystitis s/p Lap Duyen POD#2 * Continue IV Abx * Drain removed without incident * Surgically stable for discharge when medically cleared Subjective 24 Hr Interval Summary Stable without acute events. Afebrile. Drain output 40cc serosanguinous. Exam/Review of Systems Vital Signs Vitals Vital Signs Date Time Temp Pulse Resp B/P Pulse Ox O2 Delivery O2 Flow Rate FiO2 01/10/17 08:53 99.4 76 20 121/58 98 01/09/17 21:00 Nasal Cannula 2.0 Intake and Output 01/09/17 01/09/17 01/10/17 15:00 23:00 07:00 Intake Total 100 ml 400 ml 600 ml Output Total 40 ml Balance 100 ml 360 ml 600 ml Exam Free Text/Dictation GENERAL: Awake, alert, oriented 3. No acute distress. SKIN: No jaundice. ABDOMEN: Soft, obese, appropriate incisional tenderness to palpation INCISIONS: clean, dry, intact Results Result Diagram: 01/10/17 0435 01/10/17 0435 GABE MONTANO MD Jan 10, 2017 12:40
[2017-01-10 20:33] VITALS: BP 134/64; RESP 18
[2017-01-10] MEDS: FAMOTIDINE 20 MG TAB PO SCH (20:40)
[2017-01-10] MEDS: SENNA TAB PO SCH (20:40)
[2017-01-11] MEDS: PIPER-TAZO 3.375 GM IV (PMX) 100 ML IVPB SCH ×3 (05:16→11:44)
[2017-01-11] MEDS: LORAZEPAM 2 MG INJ IV SCH ×4 (05:16→17:49)
[2017-01-11 05:18] LABS: ALBUMIN 2.9 g/dl (3.3-4.9)
[2017-01-11 05:19] LABS: POTASSIUM 3.6 mmol/L (3.5-5.1)
[2017-01-11 05:21] LABS: ALBUMIN/GLOBULIN RATIO 1.31; BILIRUBIN,INDIRECT 0.2 mg/dl (0-1.1); BILIRUBIN,TOTAL 0.2 mg/dl (0.2-1.3); CREATININE 0.79 mg/dl (0.44-1.00); TOTAL PROTEIN 5.1 g/dl (6.1-8.1)
[2017-01-11 05:22] LABS: CALCIUM 9.1 mg/dl (8.4-10.2)
[2017-01-11] MEDS: HYDROmorphONE 0.2 MG/ML PCA IV SCH (05:26)
[2017-01-11 05:33] LABS: BASOPHILS % 0.5 % (0.0-2.0); EOSINOPHILS # 0.3 10^3/ul (0.0-0.5); EOSINOPHILS % 5.6 % (0.0-7.0); HEMATOCRIT 31.3 % (37.0-47.0); HEMOGLOBIN 10.3 g/dl (12.0-16.0); LYMPHOCYTES # 1.2 10^3/ul (0.8-2.9); LYMPHOCYTES % 25.8 % (15.0-51.0); MEAN CORPUSCULAR HEMOGLOBIN 30.6 pg (29.0-33.0); MEAN CORPUSCULAR VOLUME 92.6 fl (82.0-101.0); MEAN PLATELET VOLUME 10.7 fl (7.4-10.4); MONOCYTE # 0.4 10^3/ul (0.3-0.9); NEUTROPHIL # 2.8 10^3/ul (1.6-7.5); NEUTROPHILS % 60.1 % (39.0-77.0); PLATELET COUNT 193 10^3/UL (140-440); RED BLOOD COUNT 3.38 10^6/ul (4.20-5.40); UNCORRECTED WBC 4.7 10^3/ul (4.8-10.8); WHITE BLOOD COUNT 4.7 10^3/ul (4.8-10.8)
[2017-01-11 05:41] LABS: CONDITION 1
[2017-01-11] MEDS: FAMOTIDINE 20 MG TAB PO SCH ×3 (09:00→22:30)
[2017-01-11] MEDS: NYSTATIN 30 GM POWDER BTL TOP SCH ×3 (09:00→22:30)
[2017-01-11] MEDS: ENOXAPARIN 40 MG/0.4 ML SYG SC SCH (09:00)
[2017-01-11] MEDS: DOCUSATE SODIUM 250 MG CAP PO SCH (09:00)
[2017-01-11] MEDS: ZIPRASIDONE 20 MG CAP PO SCH ×3 (09:00→22:29)
[2017-01-11] MEDS: HYDROmorphONE 1 MG/ML SYG IV PRN (10:03)
--- NOTE | 2017-01-11 10:14 | PN ---
Date/Time of Note Date/Time of Note DATE: 01/11/17 TIME: 10:12 Assessment/Plan VTE Prophylaxis VTE Prophylaxis Intervention: LMWH, SCD's Lines/Catheters IV Catheter Type (from Nrsg): PICC Line Central line still needed: Yes Urinary Cath still in place: No Reason Cath still needed: other (indicate) Assessment/Plan Assessment/Plan Difficult 56-year-old female with history of CVA, panic attack, left hip replacement, who comes in with abdominal pain and signs of acute cholecystitis. 1. Acute Cholecystitis s/p lap elkin 01/08/17 2. S/p Prior LHR 3. Chronic Anxiety d/o r/o Bipolar d/o 4. Prev CVA 5. Chronic NC Anemia ? source PLAN: Continue post op pain control/ antiemetics/ antipyretics/ supportive care Encourage OOB / PT eval Appreciate all consultants SNF placement pending PROPHYLAXIS: SCDs / H2 blockers Subjective 24 Hr Interval Summary Constitutional: improved Exam/Review of Systems Vital Signs Vitals Vital Signs Date Time Temp Pulse Resp B/P Pulse Ox O2 Delivery O2 Flow Rate FiO2 01/11/17 05:00 18 01/10/17 20:33 98.2 73 134/64 93 01/10/17 09:00 Nasal Cannula 2.0 Intake and Output 01/10/17 01/10/17 01/11/17 15:00 23:00 07:00 Intake Total 100 ml 660 ml 560 ml Balance 100 ml 660 ml 560 ml Exam Constitutional: alert, obese, oriented Psych: anxiety Head: normocephalic Eyes: PERRL, No icteric ENMT: mucosa pink and moist Neck: supple Respiratory: diminished breath sounds Cardiovascular: regular rate and rhythm, No murmurs/extra sounds Gastrointestinal: soft, bowel sounds surgical scars (look clean without oozing) Extremities: No edema Neurological: nl mental status, No focal weakness Results Result Diagram: 01/11/1742401/11/17424 Results 24 hrs Laboratory Tests Test 01/11/17 04:25 Alanine Aminotransferase (ALT/SGPT) 31 Albumin 2.9 L Albumin/Globulin Ratio 1.31 Alkaline Phosphatase 76 Anion Gap 9 Aspartate Amino Transf (AST/SGOT) 13 L Basophils # 0.0 Basophils % 0.5 Blood Morphology Comment Blood Urea Nitrogen 5 L Calcium Level 9.1 Carbon Dioxide Level 33 H Chloride Level 104 Creatinine 0.79 Direct Bilirubin 0.00 Eosinophils # 0.3 Eosinophils % 5.6 Globulin 2.20 Glucose Level 88 Hematocrit 31.3 L Hemoglobin 10.3 L Indirect Bilirubin 0.2 Lymphocytes # 1.2 Lymphocytes % 25.8 Mean Corpuscular Hemoglobin 30.6 Mean Corpuscular Hemoglobin Concent 33.0 Mean Corpuscular Volume 92.6 Mean Platelet Volume 10.7 H Monocytes # 0.4 Monocytes % 8.0 Neutrophils # 2.8 Neutrophils % 60.1 Nucleated Red Blood Cells # 0.0 Nucleated Red Blood Cells % 0.0 Platelet Count 193 Potassium Level 3.6 Red Blood Count 3.38 L Red Cell Distribution Width 14.0 Sodium Level 142 Total Bilirubin 0.2 Total Protein 5.1 L White Blood Count 4.7 L Medications Medications Current Medications Piperacillin Sod/ Tazobactam Sod (Zosyn 3.375gm/ 100 ml (Pmx)) 100 ml @ 200 mls /hr Q6 IVPB Last administered on 01/11/17 05:16; Admin Dose 200 MLS/HR; Start 01/02/17 at 06:00 Ondansetron HCl (Zofran Inj) 4 mg Q6H PRN IV NAUSEA AND/OR VOMITING Last administered on 01/06/17 16:02; Admin Dose 4 MG; Start 01/02/17 at 05:00 Nystatin (Nystatin Powder) 1 applic BID TOP Last administered on 01/07/17 23: 33; Admin Dose 1 APPLIC; Start 01/02/17 at 23:00 Hydromorphone HCl (Dilaudid) 1 mg Q4 PRN IV PAIN Last administered on 10:03; Admin Dose 1 MG; Start 01/04/17 at 13:00 Lorazepam (Ativan) 0.5 mg Q6 IV Last administered on 01/11/17 05:16; Admin Dose 0.5 MG; Start 01/04/17 at 14:00 Ziprasidone (Geodon) 20 mg BID PO Last administered on 01/07/17 09:10; Admin Dose 20 MG; Start 01/04/17 at 14:00 Hydromorphone HCl (Dilaudid TAILOR'S AIDE) 0.5 MG/HR CONTINUOUS RATE ... Q4PCA IV Last administered on 2/23/17at 05:26; Admin Dose 6 MG; Start 01/04/17 at 12:30 IV Flush (NS 10 ml) 10 ml PRN PRN IV IV PROTOCOL; Start 01/05/17 at 12:30 Enoxaparin Sodium (Lovenox) 40 mg DAILY SC Last administered on 01/10/17t 11:50 ; Admin Dose 40 MG; Start 01/09/17 at 11:00 Senna (Senokot) 2 tab QHS PO ; Start 01/09/17 at 21:00 Docusate Sodium (Colace) 250 mg DAILY PO ; Start 01/09/17 at 14:00 Famotidine (Pepcid) 20 mg BID PO ; Start 01/10/17 at 21:00 Procedures Procedures PT EVALUATION: Pt is a 56 yo female who presented to [facility] ED due to abdominal pain. CT of abdomen/pelvis showed distended gall bladder. PMH: CVA, panic attack. Pt underwent lap cholecystectomy on 01/08/[address] Florentino. Pt is alert and oriented , agreeable to PT eval with mod encouragement, cleared by Roberta MALAVE. Precautions: fall risk, bed alarm, 2PA for safety PLOF: per pt report-lives in an independent living facility that's fully handicap accessible. Pt reports being independent with household ambulation and ADL's without AD. 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 In no apparent distress. Reported abdominal pain; pushed TAILOR'S AIDE and took pain meds. Educated on POC, safety, fall prevention, sequencing; all with fair understanding. Educated on importance of mobility and risks of prolonged bed rest with fair understanding. Mod assist for supine to sit. Tolerated 1 min of sitting with fair sitting balance. Requested to head back to bed due to pain. Max assist for sit to supine, call light in reach, all lines in placed, + bed alarm. Limited in functional mobility due to pain, generalized weakness, lack of participation. Not cleared OOB with nsg at this time. Recommend SNF upon dc. PT POC daily 5xwk for bed mobility, transfers/gait when assessed, therex, balance training, safety awareness, pt/family education for LOS or until goals. GÓMEZ SEN Jan 11, 2017 10:13
[2017-01-11] MEDS ORDERED: ACETAMINOPHEN 1000MG/100ML IV 100 ML IVPB PRN (13:00)
[2017-01-11] MEDS: HYDROmorphONE 2 MG TAB PO PRN (14:08)
[2017-01-11] MEDS: SENNA TAB PO SCH ×2 (21:00→22:29)
[2017-01-12 03:30] VITALS: BP 146/82; PULSE 95; RESP 17
[2017-01-12] MEDS: LORAZEPAM 2 MG INJ IV SCH ×3 (06:00→11:42)
[2017-01-12] MEDS: HYDROmorphONE 2 MG TAB PO PRN ×3 (07:49→19:36)
[2017-01-12 07:58] VITALS: BP 145/84; RESP 20
[2017-01-12] MEDS: NYSTATIN 30 GM POWDER BTL TOP SCH ×2 (09:00→21:00)
[2017-01-12] MEDS: DOCUSATE SODIUM 250 MG CAP PO SCH (09:00)
[2017-01-12] MEDS: ZIPRASIDONE 20 MG CAP PO SCH ×2 (09:34→21:51)
[2017-01-12] MEDS: FAMOTIDINE 20 MG TAB PO SCH ×2 (09:34→21:51)
[2017-01-12] MEDS: ENOXAPARIN 40 MG/0.4 ML SYG SC SCH (09:35)
[2017-01-12] MEDS ORDERED: ZIPR20CA7 PO (12:08)
[2017-01-12] MEDS ORDERED: DOCU250C58 PO (12:08)
[2017-01-12] MEDS ORDERED: FAMO20TA18 PO (12:08)
[2017-01-12] MEDS ORDERED: NYST15PO4 TOP (12:08)
[2017-01-12] MEDS ORDERED: SENN-53 PO (12:08)
[2017-01-12 14:21] LABS: ADD SCAN DIFF NO
[2017-01-12 14:24] LABS: BASOPHILS % 0.3 % (0.0-2.0); EOSINOPHILS % 0.1 % (0.0-7.0); HEMATOCRIT 33.3 % (37.0-47.0); HEMOGLOBIN 11.6 g/dl (12.0-16.0); LYMPHOCYTES % 9.8 % (15.0-51.0); MEAN CORPUSCULAR HEMOGLOBIN 31.6 pg (29.0-33.0); MEAN CORPUSCULAR HGB CONC 34.8 g/dl (32.0-37.0); MEAN CORPUSCULAR VOLUME 90.7 fl (82.0-101.0); MEAN PLATELET VOLUME 12.4 fl (7.4-10.4); MONOCYTE # 0.4 10^3/ul (0.3-0.9); MONOCYTES % 3.4 % (0.0-11.0); NEUTROPHILS % 85.8 % (39.0-77.0); PLATELET COUNT 266 10^3/UL (140-415); RED BLOOD COUNT 3.67 10^6/ul (4.20-5.40); RED CELL DISTRIBUTION WIDTH 13.1 % (11.5-14.5); WHITE BLOOD COUNT 10.4 10^3/ul (4.8-10.8)
[2017-01-12 14:45] LABS: ALBUMIN 3.4 g/dl (3.3-4.9); POTASSIUM 3.4 mmol/L (3.5-5.1)
[2017-01-12 14:48] LABS: ALBUMIN/GLOBULIN RATIO 1.36; BILIRUBIN,INDIRECT 0.2 mg/dl (0-1.1); BILIRUBIN,TOTAL 0.2 mg/dl (0.2-1.3); CREATININE 0.68 mg/dl (0.44-1.00); TOTAL PROTEIN 5.9 g/dl (6.1-8.1)
[2017-01-12 14:49] LABS: CALCIUM 9.3 mg/dl (8.4-10.2)
[2017-01-12] MEDS ORDERED: ALPR0.25 PO (15:01)
[2017-01-12] MEDS ORDERED: HYDR2TAB15 PO (15:01)
[2017-01-12] MEDS ORDERED: POTASSIUM CHLORIDE 250 ML IVPB SCH (16:00)
--- NOTE | 2017-01-12 16:09 | DS ---
DATE OF ADMISSION: 01/02/2017 DATE OF DISCHARGE: 01/12/2017 PRESENTING COMPLAINT: Abdominal pain. ADMISSION DIAGNOSES: 1. Acute cholecystitis. 2. Abdominal pain secondary to above. 3. Leukocytosis secondary to #1. 4. History of cerebrovascular accident. 5. History of panic attacks. CONSULTANTS ON THE CASE: Dr. Damaso Brennan as well as Dr. Ambrose Florentino. The patient also was seen by Dr. Kisha Garcia for pain management. I NTERVENTIONS: The patient had a CT of the abdomen and pelvis 01/01/2017. This showed a distended g allbladder wall thickening and pericholecystic infiltration with noncalcified gallstones that was sl udge. Appearance was consistent with obstruction of the cystic duct with cholecystitis. There was no evidence of biliary ductal dilatation. There were scattered colonic diverticula without evidence of acute diverticulitis, and there was evidence that patient is status post left hip arthroplasty a nd there was evidence of atherosclerosis. She underwent HIDA scan 01/03/2017. This showed nonvisua lization of the gallbladder up to 60 minutes post-injection without evidence of common bile duct obs truction. She had a PICC line inserted on 01/05/2017 and a chest x-ray done postoperatively 017 that showed clear lungs. She underwent a laparoscopic cholecystectomy 01/08/[address] Carolann Florentino and findings of acute cholecystitis and pericholecystic abscess. A drain was placed. F or operative report, please see Dr. Florentino's note. HOSPITAL COURSE: She had hospitalization, full details are available in chart for review. In summary, Ms. Lucina Bello is an interesting female with a past medical history of some kind of psychiatric disorder which we are not sure about, a history of CVA as well, panic attack, left hip r eplacement who had come here with abdominal pain and CT findings concerning for cholecystitis. The recommendation was to undergo laparoscopic cholecystectomy; however, the patient initially in the ea rly part of her admission refused all lab work, refused medication and refused surgery. She was se en by pain management because she continues to complain of severe pain and started on a Dilaudid [employer] WELL[employer] DIRECTOR pump. After this, she consented to go for an antipsychotic therapy as well as consented to proceed with surgery. Surgery was done 01/08/2017 and she had a drain placed which was removed on postoper ative day 2, after which the patient was cleared from a surgical standpoint for discharge. However , due to the patient's continued complaint of lethargy and debility, the recommendation was to trans ai the patient for further care to a intermediate facility for rehabilitation. Patient, however , refused this. She wanted instead to return to her own home with home health. At this time, this has been all set up and patient has been cleared from all standpoints for discharge. Currently, she is tolerating a low cholesterol, low fat diet. DISCHARGE MEDICATIONS: 1. Colace 250 mg p.o. daily. 2. Famotidine 20 mg b.i.d. 3. Nystatin 1 application topical b.i.d. 4. Senna 2 tabs p.o. at bedtime. 5. Geodon 20 mg p.o. b.i.d. 6. Dilaudid 2 mg p.o. q.4h. p.r.n. pain, 7. Xanax 0.25 mg q. 8 hours for agitation. DISPOSITION: To home with home health FINAL DIAGNOSES: 1. Acute cholecystitis, status post laparoscopic cholecystectomy 01/08/2017. 2. Status post left hip replacement. 3. Chronic anxiety disorder, rule out bipolar disease. 4. Previous cerebrovascular accident. 5. Chronic normocytic anemia, which is stable. CONDITION AT TIME OF DISCHARGE: Overall time spent on discharge coordination has been about 45 karlee lory. For clarification and further information, please review the patient's chart and my orders. Dictated By: GÓMEZ SEN MD, BA/GRIFFIN Conf#: [id number] DID#: [id number]
[2017-01-12] MEDS: SENNA TAB PO SCH (21:00)
[2017-01-12 23:35] VITALS: BP 164/77; PULSE 77; RESP 17
[2017-01-12] MEDS: LORAZEPAM 2 MG INJ IV PRN (23:35)
[2017-01-13] MEDS: HYDROmorphONE 2 MG TAB PO PRN ×3 (05:42→21:43)
[2017-01-13] MEDS: LORAZEPAM 2 MG INJ IV PRN (08:14)
[2017-01-13] MEDS: FAMOTIDINE 20 MG TAB PO SCH ×2 (08:16→20:14)
[2017-01-13] MEDS: DOCUSATE SODIUM 250 MG CAP PO SCH ×2 (08:16→08:23)
[2017-01-13] MEDS: ZIPRASIDONE 20 MG CAP PO SCH ×2 (08:16→20:14)
[2017-01-13] MEDS: ENOXAPARIN 40 MG/0.4 ML SYG SC SCH (08:19)
[2017-01-13] MEDS: NYSTATIN 30 GM POWDER BTL TOP SCH ×2 (08:20→21:00)
[2017-01-13 10:00] VITALS: BP 140/78; PULSE 88; RESP 18
[2017-01-13 10:00] LABS: ADD SCAN DIFF NO
[2017-01-13] MEDS ORDERED: HYDROmorphONE 2 MG TAB PO ONE (10:00)
[2017-01-13 10:05] LABS: BASOPHILS % 0.3 % (0.0-2.0); EOSINOPHILS # 0.1 10^3/ul (0.0-0.5); EOSINOPHILS % 1.7 % (0.0-7.0); HEMOGLOBIN 10.8 g/dl (12.0-16.0); LYMPHOCYTES # 1.4 10^3/ul (0.8-2.9); MEAN CORPUSCULAR HGB CONC 33.8 g/dl (32.0-37.0); MEAN PLATELET VOLUME 12.5 fl (7.4-10.4); MONOCYTE # 0.5 10^3/ul (0.3-0.9); NEUTROPHIL # 4.5 10^3/ul (1.6-7.5); NEUTROPHILS % 68.2 % (39.0-77.0); PLATELET COUNT 263 10^3/UL (140-415); RED BLOOD COUNT 3.48 10^6/ul (4.20-5.40); RED CELL DISTRIBUTION WIDTH 13.6 % (11.5-14.5); WHITE BLOOD COUNT 6.6 10^3/ul (4.8-10.8)
[2017-01-13 10:11] LABS: ALBUMIN 3.2 g/dl (3.3-4.9)
[2017-01-13 10:12] LABS: POTASSIUM 3.9 mmol/L (3.5-5.1)
[2017-01-13 10:14] LABS: ALBUMIN/GLOBULIN RATIO 1.28; BILIRUBIN,INDIRECT 0.1 mg/dl (0-1.1); BILIRUBIN,TOTAL 0.1 mg/dl (0.2-1.3); CREATININE 0.71 mg/dl (0.44-1.00); TOTAL PROTEIN 5.7 g/dl (6.1-8.1)
[2017-01-13 10:15] LABS: CALCIUM 9.4 mg/dl (8.4-10.2)
--- NOTE | 2017-01-13 14:05 | PN ---
Date/Time of Note Date/Time of Note DATE: 01/13/17 TIME: 14:03 Assessment/Plan VTE Prophylaxis VTE Prophylaxis Intervention: other Lines/Catheters IV [facility]ter Type (from [facility]): PICC Line Central line still needed: No Urinary Cath still in place: No Assessment/Plan Problems: (1) Cholecystitis Status: Acute Comment: Postop from acute cholecystectomy. At this time she is doing relatively well. Our main issue here is that the skilled nursing she lives in will not take her back as is and getting her into an ECF is proving to be a little bit of an issue. However she is doing well and taking p.o. and as such we are transitioning her over to oral pain medications and oral antianxiety medications. No further parenteral Subjective 24 Hr Interval Summary Free Text/Dictation Middle-aged female lying in bed appears comfortable but does note that she prefers her medications IV Constitutional: no complaints (No fever chills or sweats) Respiratory: no complaints Cardiovascular: no complaints Gastrointestinal: no complaints (No nausea or vomiting) Exam/Review of Systems Vital Signs Vitals Vital Signs Date Time Temp Pulse Resp B/P Pulse Ox O2 Delivery O2 Flow Rate FiO2 01/12/17 23:35 98.3 77 17 164/77 94 Room Air 01/10/17 09:00 2.0 Intake and Output 01/12/17 01/12/17 01/13/17 15:00 23:00 07:00 Intake Total 450 ml 250 ml Balance 450 ml 250 ml Exam Constitutional: alert, oriented Respiratory: clear to auscultation, normal air movement Cardiovascular: nl pulses, regular rate and rhythm Gastrointestinal: nl liver, spleen, non-tender, soft Results Result Diagram: 01/13/1734 01/13/17 0934 Results 24 hrs Laboratory Tests Test 01/13/17 09:34 Alanine Aminotransferase (ALT/SGPT) 27 Albumin 3.2 L Albumin/Globulin Ratio 1.28 Alkaline Phosphatase 81 Anion Gap 14 Aspartate Amino Transf (AST/SGOT) 17 Basophils # 0.0 Basophils % 0.3 Blood Urea Nitrogen 11 Calcium Level 9.4 Carbon Dioxide Level 28 Chloride Level 104 Creatinine 0.71 Direct Bilirubin 0.00 Eosinophils # 0.1 Eosinophils % 1.7 Globulin 2.50 Glucose Level 111 Hematocrit 32.0 L Hemoglobin 10.8 L Indirect Bilirubin 0.1 Lymphocytes # 1.4 Lymphocytes % 22.0 Mean Corpuscular Hemoglobin 31.0 Mean Corpuscular Hemoglobin Concent 33.8 Mean Corpuscular Volume 92.0 Mean Platelet Volume 12.5 H Monocytes # 0.5 Monocytes % 7.0 Neutrophils # 4.5 Neutrophils % 68.2 Nucleated Red Blood Cells # 0.0 Nucleated Red Blood Cells % 0.0 Platelet Count 263 Potassium Level 3.9 Red Blood Count 3.48 L Red Cell Distribution Width 13.6 Sodium Level 142 Total Bilirubin 0.1 L Total Protein 5.7 L White Blood Count 6.6 # Medications Medications Current Medications Ondansetron HCl (Zofran Inj) 4 mg Q6H PRN IV NAUSEA AND/OR VOMITING Last administered on 01/06/17 16:02; Admin Dose 4 MG; Start 01/02/17 at 05:00 Nystatin (Nystatin Powder) 1 applic BID TOP Last administered on 01/07/17 23: 33; Admin Dose 1 APPLIC; Start 01/02/17 at 23:00 Ziprasidone (Geodon) 20 mg BID PO Last administered on 01/13/17 08:16; Admin Dose 20 MG; Start 01/04/17 at 14:00 IV Flush (NS 10 ml) 10 ml PRN PRN IV IV PROTOCOL; Start 01/05/17 at 12:30 Enoxaparin Sodium (Lovenox) 40 mg DAILY SC Last administered on 01/13/17 08:19 ; Admin Dose 40 MG; Start 01/09/17 at 11:00 Senna (Senokot) 2 tab QHS PO ; Start 01/09/17 at 21:00 Docusate Sodium (Colace) 250 mg DAILY PO ; Start 01/09/17 at 14:00 Famotidine 20 mg 20 mg BID PO Last administered on 01/13/17 08:16; Admin Dose 20 MG; Start 01/10/17 at 21:00 Acetaminophen (Ofirmev 1000mg/ 100ml Iv) 100 ml @ 400 mls/hr Q6H PRN IVPB PAIN LEVEL 1-5; Start 01/11/17 at 13:00 Hydromorphone HCl (Dilaudid) 2 mg Q6H PRN PO PAIN LEVEL 8-10 Last administered on 01/13/17 05:42; Admin Dose 2 MG; Start 2/23/17 at 13:00 Lorazepam (Ativan) 0.5 mg Q12H PRN IV anxiety Last administered on 01/13/17t 08 :14; Admin Dose 0.5 MG; Start 01/13/17 at 00:00 WESLY LANGSTON MD Jan 13, 2017 14:04
[2017-01-13] MEDS: LORAZEPAM 0.5 MG TAB PO PRN (16:51)
[2017-01-13] MEDS: SENNA TAB PO SCH (21:00)
[2017-01-13 21:30] VITALS: BP 156/84; PULSE 80; RESP 18
[2017-01-14] MEDS: LORAZEPAM 0.5 MG TAB PO PRN ×3 (00:39→22:07)
--- NOTE | 2017-01-14 08:57 | PN ---
Date/Time of Note Date/Time of Note DATE: 01/14/17 TIME: 08:49 Assessment/Plan VTE Prophylaxis VTE Prophylaxis Intervention: other Lines/Catheters IV C[facility]ter Type (from [facility]): PICC Line Central line still needed: No Urinary Cath still in place: No Assessment/Plan Problems: (1) Major depressive disorder, recurrent episode with anxious distress Status: Chronic Comment: Patient has clear symptoms. She however is somewhat recalcitrant to cooperate with staffing and medications in the hospital. As she had seen Dr. Ahuja prior to this we will try and get him involved to see if we can make some progress. (2) Obesity (BMI 30.0-34.9) Status: Chronic Comment: Noted please note that she is eating between 40 and 50% of all of her meals (3) Chronic pain syndrome Status: Chronic Comment: In her allergies it was fentanyl however she was on fentanyl and she came to the hospital. She will need some type of pain management as well as coordinate psychiatric care as discharge (4) Cholecystitis Status: Resolved Comment: Resolved with surgical repair. Awaiting discharge based on placement Subjective 24 Hr Interval Summary Free Text/Dictation Patient reports that she feels worse she has felt her entire lifetime since reduction in parenteral narcotics Constitutional: no complaints (Denies fever chills or sweats) Cardiovascular: no complaints Gastrointestinal: nausea, pain Exam/Review of Systems Vital Signs Vitals Vital Signs Date Time Temp Pulse Resp B/P Pulse Ox O2 Delivery O2 Flow Rate FiO2 01/13/17 21:30 98.3 80 18 156/84 98 Room Air 01/10/17 09:00 2.0 Intake and Output 01/13/17 01/13/17 01/14/17 15:00 23:00 07:00 Intake Total 580 ml 480 ml Balance 580 ml 480 ml Exam Constitutional: alert, oriented Respiratory: clear to auscultation, normal air movement Cardiovascular: nl pulses, regular rate and rhythm Results Result Diagram: 01/13/1734 01/13/1734 Results 24 hrs Laboratory Tests Test 01/13/17 09:34 Alanine Aminotransferase (ALT/SGPT) 27 Albumin 3.2 L Albumin/Globulin Ratio 1.28 Alkaline Phosphatase 81 Anion Gap 14 Aspartate Amino Transf (AST/SGOT) 17 Basophils # 0.0 Basophils % 0.3 Blood Urea Nitrogen 11 Calcium Level 9.4 Carbon Dioxide Level 28 Chloride Level 104 Creatinine 0.71 Direct Bilirubin 0.00 Eosinophils # 0.1 Eosinophils % 1.7 Globulin 2.50 Glucose Level 111 Hematocrit 32.0 L Hemoglobin 10.8 L Indirect Bilirubin 0.1 Lymphocytes # 1.4 Lymphocytes % 22.0 Mean Corpuscular Hemoglobin 31.0 Mean Corpuscular Hemoglobin Concent 33.8 Mean Corpuscular Volume 92.0 Mean Platelet Volume 12.5 H Monocytes # 0.5 Monocytes % 7.0 Neutrophils # 4.5 Neutrophils % 68.2 Nucleated Red Blood Cells # 0.0 Nucleated Red Blood Cells % 0.0 Platelet Count 263 Potassium Level 3.9 Red Blood Count 3.48 L Red Cell Distribution Width 13.6 Sodium Level 142 Total Bilirubin 0.1 L Total Protein 5.7 L White Blood Count 6.6 # Medications Medications Current Medications Ondansetron HCl (Zofran Inj) 4 mg Q6H PRN IV NAUSEA AND/OR VOMITING Last administered on 01/06/17 16:02; Admin Dose 4 MG; Start 01/02/17 at 05:00 Nystatin (Nystatin Powder) 1 applic BID TOP Last administered on 01/07/17 23: 33; Admin Dose 1 APPLIC; Start 01/02/17 at 23:00 Ziprasidone (Geodon) 20 mg BID PO Last administered on 01/13/17 20:14; Admin Dose 20 MG; Start 01/04/17 at 14:00 IV Flush (NS 10 ml) 10 ml PRN PRN IV IV PROTOCOL; Start 01/05/17 at 12:30 Enoxaparin Sodium (Lovenox) 40 mg DAILY SC Last administered on 01/13/17 08:19 ; Admin Dose 40 MG; Start 01/09/17 at 11:00 Senna (Senokot) 2 tab QHS PO ; Start 01/09/17 at 21:00 Docusate Sodium (Colace) 250 mg DAILY PO ; Start 01/09/17 at 14:00 Famotidine 20 mg 20 mg BID PO Last administered on 01/13/17 20:14; Admin Dose 20 MG; Start 01/10/17 at 21:00 Acetaminophen (Ofirmev 1000mg/ 100ml Iv) 100 ml @ 400 mls/hr Q6H PRN IVPB PAIN LEVEL 1-5; Start 01/11/17 at 13:00 Lorazepam (Ativan) 0.5 mg Q8H PRN PO ANXIETY Last administered on 01/14/17 00: 39; Admin Dose 0.5 MG; Start 01/13/17 at 14:00 Hydromorphone HCl (Dilaudid) 2 mg Q6H PRN PO PAIN LEVEL 6-10 Last administered on 01/13/17 21:43; Admin Dose 2 MG; Start 01/13/17 at 15:30 WESLY LANGSTON MD Jan 14, 2017 08:57
[2017-01-14] MEDS: DOCUSATE SODIUM 250 MG CAP PO SCH (09:00)
[2017-01-14] MEDS: NYSTATIN 30 GM POWDER BTL TOP SCH ×2 (09:00→21:00)
[2017-01-14] MEDS: ENOXAPARIN 40 MG/0.4 ML SYG SC SCH (09:00)
[2017-01-14] MEDS: FAMOTIDINE 20 MG TAB PO SCH ×2 (09:29→21:21)
[2017-01-14] MEDS: ZIPRASIDONE 20 MG CAP PO SCH ×2 (09:29→21:21)
[2017-01-14] MEDS: HYDROmorphONE 2 MG TAB PO PRN ×3 (09:35→21:19)
[2017-01-14 14:32] LABS: ADD SCAN DIFF NO
[2017-01-14 14:39] LABS: BASOPHILS % 0.5 % (0.0-2.0); EOSINOPHILS # 0.2 10^3/ul (0.0-0.5); EOSINOPHILS % 2.5 % (0.0-7.0); HEMATOCRIT 33.6 % (37.0-47.0); HEMOGLOBIN 11.3 g/dl (12.0-16.0); LYMPHOCYTES # 1.5 10^3/ul (0.8-2.9); LYMPHOCYTES % 19.4 % (15.0-51.0); MEAN CORPUSCULAR HEMOGLOBIN 31.2 pg (29.0-33.0); MEAN CORPUSCULAR HGB CONC 33.6 g/dl (32.0-37.0); MEAN CORPUSCULAR VOLUME 92.8 fl (82.0-101.0); MEAN PLATELET VOLUME 12.5 fl (7.4-10.4); MONOCYTE # 0.5 10^3/ul (0.3-0.9); MONOCYTES % 6.1 % (0.0-11.0); NEUTROPHIL # 5.6 10^3/ul (1.6-7.5); PLATELET COUNT 263 10^3/UL (140-415); RED BLOOD COUNT 3.62 10^6/ul (4.20-5.40); RED CELL DISTRIBUTION WIDTH 14.1 % (11.5-14.5); WHITE BLOOD COUNT 7.9 10^3/ul (4.8-10.8)
[2017-01-14 14:44] LABS: ALBUMIN 3.3 g/dl (3.3-4.9)
[2017-01-14 14:45] LABS: POTASSIUM 3.8 mmol/L (3.5-5.1)
[2017-01-14 14:47] LABS: ALBUMIN/GLOBULIN RATIO 1.22; CREATININE 0.69 mg/dl (0.44-1.00)
[2017-01-14 14:48] LABS: CALCIUM 9.4 mg/dl (8.4-10.2)
--- NOTE | 2017-01-14 16:42 | PN ---
Date/Time of Note Date/Time of Note DATE: 01/14/17 TIME: 16:39 Assessment/Plan Lines/Catheters IV Catheter Type (from Nrsg): PICC Line Sanchez in Place (from Nrsg): No Assessment/Plan Chief Complaint/Hosp Course Coverage for Dr. Ambrose Florentino: 1. Generalized pains with chronic pain syndrome and chronic narcotic use. I do not see any evidence of acute surgical issues or complications. -Encourage ice therapy to the abdominal and chest wall -Medical/pain service management 2. Psychiatric history -Medical and psychiatric optimization 3. Obesity with BMI of 33 -Encourage nutrition and exercise optimization 4. Poor hygiene and noncompliance with medical care -Encourage hygiene and compliance with medical care in the hospital and outside the hospital 5. Hypertension -Nutrition and medication optimization -Encourage weight loss 6. Anemia, stable -Outpatient follow-up for workup and treatment Thank you Problems: Subjective 24 Hr Interval Summary Generalized pain especially because her breasts are hanging and causing chest pain on the right per patient. No fevers or chills. No nausea vomiting. No dysuria. No vaginal discharge. No cough. No visual or acute neurologic changes. Bowel function. Exam/Review of Systems Vital Signs Vitals Vital Signs Date Time Temp Pulse Resp B/P Pulse Ox O2 Delivery O2 Flow Rate FiO2 01/13/17 21:30 98.3 80 18 156/84 98 Room Air 01/10/17 09:00 2.0 Intake and Output 01/13/17 01/13/17 01/14/17 15:00 23:00 07:00 Intake Total 580 ml 480 ml Balance 580 ml 480 ml Exam Constitutional: alert, obese, oriented, No distress Psych: anxiety Head: atraumatic, normocephalic Eyes: EOMI, PERRL, nl conjunctiva, No icteric ENMT: mucosa pink and moist, nl external ears & nose Neck: non-tender, supple, No jvd Respiratory: normal air movement, No congested cough, No labored breathing Cardiovascular: regular rate and rhythm, No edema Gastrointestinal: soft, tender (minimal at incision sites), No rebound or guarding Musculoskeletal: nl extremities to inspection, nl gait and stance, No joint tenderness Extremities: normal pulses, No calf tenderness, No cyanosis Neurological: nl mental status, nl speech, nl strength Skin: nl turgor, No diaphoresis, No rash or lesions Lymph: nl lymph nodes Results Result Diagram: 01/14/17 1350 01/14/17 1350 GIRISH PANDYA MD Jan 14, 2017 16:42
[2017-01-14] MEDS: SENNA TAB PO SCH (21:00)
[2017-01-14 21:22] VITALS: BP 139/75; PULSE 60; RESP 18
[2017-01-15] MEDS: HYDROmorphONE 2 MG TAB PO PRN ×3 (04:14→17:53)
[2017-01-15] MEDS: LORAZEPAM 0.5 MG TAB PO PRN ×2 (06:06→14:07)
--- NOTE | 2017-01-15 08:11 | PN ---
Date/Time of Note Date/Time of Note DATE: 01/15/17 TIME: 08:09 Assessment/Plan Lines/Catheters IV Catheter Type (from Nrsg): PICC Line Sanchez in Place (from Nrsg): No Assessment/Plan Chief Complaint/Hosp Course Coverage for Dr. Ambrose Florentino: 1. Generalized pains with chronic pain syndrome and chronic narcotic use. I do not see any evidence of acute surgical issues or complications. Patient with high tolerance and seeking behavior -Encourage ice therapy to the abdominal and chest wall -Medical/pain service management 2. Psychiatric history -Medical and psychiatric optimization 3. Obesity with BMI of 33 -Encourage nutrition and exercise optimization 4. Poor hygiene and noncompliance with medical care -Encourage hygiene and compliance with medical care in the hospital and outside the hospital 5. Hypertension -Nutrition and medication optimization -Encourage weight loss 6. Anemia, stable -Outpatient follow-up for workup and treatment Thank you Problems: Subjective 24 Hr Interval Summary Generalized pain. Only wants IV narcotics and does not want any non-narcotic. No fevers or chills. No nausea vomiting. No dysuria. No vaginal discharge. No cough. No visual or acute neurologic changes. Bowel function. Exam/Review of Systems Vital Signs Vitals Vital Signs Date Time Temp Pulse Resp B/P Pulse Ox O2 Delivery O2 Flow Rate FiO2 01/14/17 21:22 98.4 60 18 139/75 95 Room Air Intake and Output 01/14/17 01/14/17 01/15/17 15:00 23:00 07:00 Intake Total 960 ml 120 ml Balance 960 ml 120 ml Exam Free Text/Dictation Constitutional: alert, obese, oriented, No distress Psych: anxiety Head: atraumatic, normocephalic Eyes: EOMI, PERRL, nl conjunctiva, No icteric ENMT: mucosa pink and moist, nl external ears & nose Neck: non-tender, supple, No jvd Respiratory: normal air movement, No congested cough, No labored breathing Cardiovascular: regular rate and rhythm, No edema Gastrointestinal: soft, tender (minimal at incision sites), No rebound or guarding Musculoskeletal: nl extremities to inspection, nl gait and stance, No joint tenderness Extremities: normal pulses, No calf tenderness, No cyanosis Neurological: nl mental status, nl speech, nl strength Skin: nl turgor, No diaphoresis, No rash or lesions Lymph: nl lymph nodes Results Result Diagram: 01/14/17 1350 01/14/17 1350 GIRISH PANDYA MD Jan 15, 2017 08:11
[2017-01-15] MEDS: FAMOTIDINE 20 MG TAB PO SCH (08:48)
[2017-01-15] MEDS: ZIPRASIDONE 20 MG CAP PO SCH (08:48)
[2017-01-15] MEDS: DOCUSATE SODIUM 250 MG CAP PO SCH (08:48)
[2017-01-15] MEDS: NYSTATIN 30 GM POWDER BTL TOP SCH (09:00)
[2017-01-15] MEDS: ENOXAPARIN 40 MG/0.4 ML SYG SC SCH (09:03)
--- NOTE | 2017-01-15 14:01 | PDOCDIS ---
Discharge Instructions CONDITION Patient Condition: Stable HOME CARE INSTRUCTIONS: Diet Instructions: Low Fat /CholesterolSpecial Diet: N/A ACTIVITY: Activity Restrictions: Slowly Increase Activity Rest between Activity Avoid heavy lifting Do not operate Machinery Do not operate Power Tool Avoid Heavy Housework Bathing Restrictions: CÉSAR Hanks Jan 15, 2017 14:01
--- NOTE | 2017-01-15 14:04 | DS ---
Date/Time of Note Date/Time of Note DATE: 01/15/17 TIME: 14:02 Discharge Summary Admission/Discharge Info Admit Date/Time Jan 02, 2017 at 03:48 Discharge Date/Time Final Diagnosis 1. Acute cholecystitis, status post laparoscopic cholecystectomy 01/08/2017. 2. Status post left hip replacement. 3. Chronic anxiety disorder, rule out bipolar disease. 4. Previous cerebrovascular accident. 5. Chronic normocytic anemia, which is stable Hospital Course CONSULTANTS ON THE CASE: Dr. Damaso Brennan as well as Dr. Ambrose Florentino. The patient also was seen by Dr. Kisha Garcia for pain management. NTERVENTIONS: The patient had a CT of the abdomen and pelvis 01/01/2017. This showed a distended gallbladder wall thickening and pericholecystic infiltration with noncalcified gallstones that was sludge. Appearance was consistent with obstruction of the cystic duct with cholecystitis. There was no evidence of biliary ductal dilatation. There were scattered colonic diverticula without evidence of acute diverticulitis, and there was evidence that patient is status post left hip arthroplasty and there was evidence of atherosclerosis. She underwent HIDA scan 01/03/2017. This showed nonvisualization of the gallbladder up to 60 minutes post-injection without evidence of common bile duct obstruction. She had a PICC line inserted on 01/05/2017 and a chest x-ray done postoperatively 01/07/2017 that showed clear lungs. She underwent a laparoscopic cholecystectomy 01/08/[address] Ambrose Florentino and findings of acute cholecystitis and pericholecystic abscess. A drain was placed. For operative report, please see Dr. Florentino's note. HOSPITAL COURSE: She had hospitalization, full details are available in chart for review. In summary, Ms. Lucina Bello is an interesting female with a past medical history of some kind of psychiatric disorder which we are not sure about, a history of CVA as well, panic attack, left hip replacement who had come here with abdominal pain and CT findings concerning for cholecystitis. The recommendation was to undergo laparoscopic cholecystectomy; however, the patient initially in the early part of her admission refused all lab work, refused medication and refused surgery. She was seen by pain management because she continues to complain of severe pain and started on a Dilaudid [employer] ADVISER pump. After this, she consented to go for an antipsychotic therapy as well as consented to proceed with surgery. Surgery was done 01/08/2017 and she had a drain placed which was removed on postoperative day 2, after which the patient was cleared from a surgical standpoint for discharge. However, due to the patient's continued complaint of lethargy and debility, the recommendation was to transfer the patient for further care to a prison facility for rehabilitation. Patient, however, initially refused this, but now at this time , this has been all set up and patient has been cleared from all standpoints for discharge. Currently, she is tolerating a low cholesterol, low fat diet. DISCHARGE MEDICATIONS: 1. Colace 250 mg p.o. daily. 2. Famotidine 20 mg b.i.d. 3. Nystatin 1 application topical b.i.d. 4. Senna 2 tabs p.o. at bedtime. 5. Geodon 20 mg p.o. b.i.d. 6. Dilaudid 2 mg p.o. q.6h. p.r.n. pain, 7. Xanax 0.25 mg q. 8 hours for agitation. DISPOSITION: To SNF Home Meds Active Scripts Alprazolam* (Xanax*) 0.25 Mg Tablet, 0.25 MG PO Q8H Y for ANXIETY, #21 TAB Prov:GÓMEZ SEN. 01/12/17 Hydromorphone Hcl* (Dilaudid*) 2 Mg Tablet, 2 MG PO Q6H Y for PAIN LEVEL 8-10, # 18 TAB Prov:GÓMEZ SEN M. 01/12/17 Ziprasidone* (Geodon*) 20 Mg Capsule, 20 MG PO BID for 30 Days, CAP 2 Refills Prov:GÓMEZ SEN M. 01/12/17 Nystatin* (Nystop*) 15 Gm Powder, 1 APPLIC TOP BID for 14 Days Prov:GÓMEZ SEN. 01/12/17 Sennosides* (Senna Lax*) 8.6 Mg Tablet, 2 TAB PO QHS for 30 Days, TAB 2 Refills Prov:GÓMEZ SEN. 01/12/17 Famotidine* (Famotidine*) 20 Mg Tablet, 20 MG PO BID for 30 Days, TAB Prov:GÓMEZ SEN. 01/12/17 Docusate Sodium* (Colace*) 250 Mg Capsule, 250 MG PO DAILY for 30 Days, CAP 2 Refills Prov:GÓMEZ SEN 01/12/17 Discontinued Reported Medications [Doesn't Know Meds] No Conflict Check 11/26/11 CÉSAR ZEPEDA Jan 15, 2017 14:04
== END 2017-01-15 19:45 | DRG 419 ==
LOC: E/R 22:04 → MERGE 01-02 03:48 → MS1 01-02 03:48
PROVIDERS: ADMIT Internal Medicine; ATTEND Internal Medicine
PROC: 02HV33Z Insertion of Infusion Device into Superior Vena Cava, Percutaneous Approach (ICD-10-PCS; 2017-01-05)
PROC: 0W9G40Z Drainage of Peritoneal Cavity with Drainage Device, Percutaneous Endoscopic Approach (ICD-10-PCS; 2017-01-08)
PROC: 0FT44ZZ Resection of Gallbladder, Percutaneous Endoscopic Approach (ICD-10-PCS; principal; 2017-01-08 17:00)
DX: K81.0 Acute cholecystitis (principal); I10 Essential (primary) hypertension; F41.9 Anxiety disorder, unspecified; F31.9 Bipolar disorder, unspecified; K82.8 Other specified diseases of gallbladder; K57.90 Diverticulosis of intestine, part unspecified, without perforation or abscess without bleeding; D64.89 Other specified anemias; K21.9 Gastro-esophageal reflux disease without esophagitis; F41.0 Panic disorder [episodic paroxysmal anxiety]; G89.29 Other chronic pain; E66.9 Obesity, unspecified; Z68.33 Body mass index [BMI] 33.0-33.9, adult; Z86.59 Personal history of other mental and behavioral disorders; Z96.642 Presence of left artificial hip joint; Z87.891 Personal history of nicotine dependence; Z86.73 Personal history of transient ischemic attack (TIA), and cerebral infarction without residual deficits; Z88.6 Allergy status to analgesic agent; Z91.19 Patient's noncompliance with other medical treatment and regimen; Z91.14 Patient's other noncompliance with medication regimen
CPT/HCPCS: 36415; 36569; 71010; 74176; 76937; 78226; 80048; 80053; 80061; 83036; 83690; 83735; 84443; 84484; 85025; 88304; 93005; 96374; 96375; 96376; 97161; 97530; A9537; J0360; J1100; J1170; J1650; J2060; J2250; J2270; J2405; J2543; J3010; J3480; J7040; J7042

== ENCOUNTER 2018-01-20 01:05 | Inpatient (IN) | END 2018-02-02 14:06 | disposition EXP | DRG 870 ==